=== PATIENT | male | born 1995 | race Caucasian/White ===

== ENCOUNTER 2024-09-17 16:51 | Emergency (ER) | payer MEDICAID, SELFPAY ==
[2024-09-17 17:06] VITALS: BP 140/78; BMI 83.2
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
[2024-09-17 17:34] LABS: % Basophils 0.6 % (0-2); % Eosinophils 4.8 % (0-6); % Immature Granulocytes 0.5 % (0-0.5); % Monocytes 10.7 % (1.7-9.3); % Neutrophils 62.4 % (42.2-75.2); Absolute Basophils 0.1 10^3/uL (0-0.2); Absolute Eosinophils 0.4 10^3/uL (0-0.7); Absolute Lymphocytes 1.7 10^3/uL (1.2-3.4); Absolute Monocytes 0.9 10^3/uL (0.1-0.6); Absolute Neutrophils 5.1 10^3/uL (1.4-6.5); Hematocrit 37.1 % (39.0-52.0); Hemoglobin 12.1 g/dL (13.0-18.0); Mean Corp Hgb Conc. 32.6 g/dL (33.0-37.0); Mean Corpuscular Hgb 28.6 pg (27.0-31.0); Mean Corpuscular Volume 87.7 fL (80.0-94.0); Mean Platelet Volume 9.7 fL (7.4-10.4); Nucleated Red Blood Cells % 0 % (-); Platelet Count 278 10^3/uL (130-400); Red Blood Cell Count 4.23 10^6/uL (4.70-6.10); Red Cell Dist. Width 13.7 % (11.5-14.5); White Blood Cell Count 8.2 10^3/uL (4.8-10.8)
[2024-09-17 17:54] LABS: ALT (SGPT) 68 U/L (0-50); AST (SGOT) 29 U/L (17-59); Acetaminophen < 10 ug/ml (10-30); Albumin 3.8 g/dl (3.5-5.0); Alkaline Phosphatase 52 U/L (38-126); Blood Urea Nitrogen 16 mg/dl (9-20); Calcium 8.9 mg/dl (8.4-10.2); Carbon Dioxide 26 mmol/L (22-30); Chloride 105 mmol/L (98-107); Estimated Creatinine Clearance > 125 ml/min; Glucose 255 mg/dl (70-99); Potassium 4.4 mmol/L (3.5-5.1); Salicylate < 1.0 mg/dl (2.0-20.0); Sodium 138 mmol/L (135-145); Total Bilirubin 0.4 mg/dl (0.2-1.3); Total Protein 6.5 g/dl (6.3-8.2); eGFR > 60.00
[2024-09-17 17:55] LABS: Alcohol None Detected
[2024-09-17 22:57] VITALS: BMI 82.4
[2024-09-17 23:03] VITALS: BP 129/64
--- NOTE | 2024-09-18 08:48 | CM ---
Addendum entered by Tiffany Malone RN 09/18/24 09:31:
SHOSHANA left message for patient's father to discuss discharge plan.
Addendum entered by Tiffany Malone RN 09/18/24 08:54:
SHOSHANA left message for patient's case repairer Trent (patient's secondary contact) to discuss discharge planning options.
Original Note:
CM reviewed medical records. Cm met with patient in room. Patient confirmed that he is currently homeless. Patient endorses that he has a mental health case repairer through [facility]. CM left message. Patient stated that his father is
unable to assist patient .
Patient stated that he was at [facility] for 7 days and the discharge plan was to the street. SHOSHANA left message for case management at [facility] to get collateral information .
--- NOTE | 2024-09-18 10:38 | CM ---
Addendum entered by Tiffany Malone RN 09/19/24 09:48:
SHOSHANA spoke with Amina Vinson who stated that she has been involved with patient for the last two years. Patient has been followed by the co-responder program and [facility]. Amina stated that patient has lost housing about two years ago. Amina
met with patient's parents in their home and family stated they consider him '' and do not want to participate with his care.
Amina stated that patient's case has been escalated to the commissioners due to his repeated contact with police and hospitals. Amina stated that she is also going to look into guardianship for patient. CM will remain available to assist as needed.
Addendum entered by Tiffany Malone RN 09/19/24 09:02:
CM left message for Amina Vinson [phone]. Amina is a mental health co-responder from [facility].
Addendum entered by Tiffany Malone RN 09/18/24 12:17:
SHOSHANA spoke with COTAVIO Alston from [facility]. Alecia endorsed that patient was inpatient at [facility]. Patient's discharge plan was to SNF at [facility]. Of note, patient has been to [facility] two times and both times signed out
AMA. [facility] was willing to accept patient for a third admission. Patient at the last minute decided to not go to SNF and requested return to the street.
Addendum entered by Tiffany Malone RN 09/18/24 11:23:
CM assisted patient with Lyft ride. Patient's wheelchair would not fit in the trunk of the Lyft riders car. Plan to have security drive wheelchair to patient's location.
Original Note:
Patient is agreeable to a Lyft ride to [place] to wait for the [facility]. CM will update patient's [facility] Clinical Specialty Rep.
CM will refer patient to [facility] via email.
--- NOTE | 2024-09-18 10:48 | ED.CRISIS ---
ED Crisis Note
ED Crisis Note
Subjective:
Patient offers no complaints
Objective:
Sitting in bed comfortably. No acute distress
Assessment/Plan:
Crisis found transportation to alf
== END 2024-09-18 10:54 | disposition other institution (70) ==
LOC: EMR 16:51
PROVIDERS: EMERGENCY PHYSICIAN Emergency Medicine
DX: R53.1 Weakness (principal); E11.9 Type 2 diabetes mellitus without complications; I10 Essential (primary) hypertension; J45.909 Unspecified asthma, uncomplicated; Z59.01 Sheltered homelessness; Z79.4 Long term (current) use of insulin; Z99.3 Dependence on wheelchair
CPT/HCPCS: 99283; 80053; 80143; 80179; 82077; 85025; 93005

== ENCOUNTER 2024-10-30 18:57 | Emergency (ER) | payer MEDICAID, SELFPAY ==
[2024-10-30 19:05] VITALS: BP 151/85
--- NOTE | 2024-10-30 19:51 | ED.GENMED ---
History of Present Illness
General
Chief Complaint: Dizziness
Source: patient and ambulance crew
Exam Limitations: none
Time Seen by Provider: 10/30/24 19:49
Nursing documentation reviewed up to this point in time: agreed with
History of Present Illness
History of Present Illness:
29-year-old male who is homeless, was sitting outside of [place] when he felt dizzy as though he was going to pass out. Initially denied chest pain, but then said he had chest pain to myself. He does deny chest pain at this time. He denies suicidal
ideation.
Past History
Past History
ED Past Medical History: HTN and IDDM
Social History
Tobacco: Non-smoker
Alcohol: None
Drug: None
Review of Systems
Review of Systems
Allergies reviewed?: Yes
All Other Systems: Not applicable
Constitutional: Reports no symptoms
EENT: Reports no symptoms
Respiratory: Reports no symptoms; Denies trouble breathing
Cardiac: Reports chest pain
ABD/GI: Reports no symptoms
: Reports no symptoms
Musculoskeletal: Reports no symptoms
Skin: Reports no symptoms
Neurological: Reports no symptoms
Endocrine: Reports no symptoms
Hematologic/Lymphatic: Reports no symptoms
Psychiatric: Reports no symptoms
Phy Exam
Physical Exam
Physical Exam:
Physical Exam
General: no apparent distress, not acutely ill, poorly kept, obese
Neck: supple. no meningeal signs. normal posterior pharynx
Heart: s1/s2 regular rate and rhythm, no murmur. equal radial
pulses.
HEENT: Pupils equal round reactive to light, EOMI
Lungs: no acute respiratory distress. clear bilaterally
Abdomen: normal bowel sounds. not tender. no CVAT
Neuro: alert and oriented. no focal neurological deficits cranial nerves II through XII intact
Skin: no rash
Psychiatric: Poorly kept. interactive and cooperative
Extremities: no edema. no calf tenderness. negative homans. good distal pulses
Course
Orders/Labs/Results
Orders:
Orders
10/30/24 19:11
Electrocardiogram (*1) Urgent
Reason for Study: Vertigo / Dizzy
10/30/24 19:12
EKG- Treatment ONCE
10/30/24 19:22
1:1 Observation - Suicide/ Violent Behavior As Directed
Crisis Consult Urgent
Reason for Consult: SI
10/30/24 21:14
Complete Blood Count/With Diff Urgent
Comprehensive Metabolic Panel Urgent
Troponin I Urgent
10/30/24 21:30
Acetaminophen [Tylenol] 650 mg .ROUTE .STK-MED ONE
Ondansetron Orally Disint [Zofran Odt (Orally Disintegrating)] 4 mg .ROUTE .STK-MED ONE
10/30/24 21:34
Ondansetron Orally Disint [Zofran Odt (Orally Disintegrating)] 4 mg PO NOW STA
10/30/24 21:35
Acetaminophen [Tylenol] 650 mg PO NOW STA
Abnormal Lab Results
10/30/24
21:14
Creatinine 0.6 L mg/dL
(0.7-1.3)
Glucose 158 H mg/dl
(70-99)
Calcium 8.3 L mg/dl
(8.4-10.2)
ALT 58 H U/L
(0-50)
Total Protein 6.2 L g/dl
(6.3-8.2)
10/30/24 21:14
10/30/24 21:14
Vital Signs
Initial and Last Documented VS:
Initial Vital Signs
Temp Pulse Resp BP Pulse Ox
99.2 F 103 20 151/85 97
10/30/24 19:05 10/30/24 19:05 10/30/24 19:05 10/30/24 19:05 10/30/24 19:05
Last Documented Vital Signs
Temp Pulse Resp BP Pulse Ox
99.2 F 103 20 151/85 97
10/30/24 19:05 10/30/24 19:05 10/30/24 19:05 10/30/24 19:05 10/30/24 19:05
MDM/Problems Addressed
Differential Diagnosis Includes:
Dysrhythmia, ACS
MDM/Problems Addressed:
29-year-old male with near syncope, reported SI, though now denying. Evaluated by telepsych, who recommends inpatient treatment. Patient is not currently mandated for mandatory inpatient hospitalization will attempt to find placement, psychiatry
to see in a.m. if patient is still in hospital.
Chronic conditions affecting care: Asthma
*Pulse Oximetry
Patient hypoxic: no
*EKG
Interpreted by ED Provider?: Yes
EKG Intrepretation Date: 10/30/24
EKG Intrepretation Time: 19:26
Interpretation: abnormal
Comparison EKG: no changes
Heart Rate: 109
Rate: tachycardiac
Rhythm: sinus tachycardia
[place]: normal axis
Interval: normal interval
QRS Pattern: normal QRS
Ischemia: no ischemia
*Critical Care Note
Total Time (30-74mins, 75-104mins- exclusive of procedures): Not Applicable
Patient Management
Social determinants of health affecting care: Living situation
Discussion with other providers: Buckram Sewer (Telepsychiatry)
Escalation/DeEscalation of care consider admission/obs:
Admission considered, will evaluate for inpatient psychiatry
ED Attending Note
-
Portions of this chart may have been created with voice recognition software.� Occasional wrong word or��sound alike� substitutions may have occurred due to the inherent limitations of voice recognition software.
Discharge Plan
Departure
Patient Disposition: Psych Facility
Date of Disposition: 10/31/24
Time of Disposition: 01:47
Patient Status:: Psych
Patient with high blood pressure during this ER visit?: Yes
Consults for patient: Psychiatry
Discharge Problem:
Dizziness
Prescriptions:
No Action
No Current Medications
0
Referrals:
NONE,* [Family Provider] -
Interventions
Interventions:
*Risk Screen - Suicide Last Done: 10/30/24 19:05
*General Assessment Last Done: 10/30/24 19:05
*Neglect/Abuse Screening Last Done: 10/30/24 19:05
ED- Fall Risk Assessment Last Done: 10/30/24 21:20
*ED COVID-19 Vaccine History Last Done: 10/30/24 19:05
ED- Neurological Assessment Last Done: 10/30/24 21:20
ED Swallowing Screen Last Done: 10/30/24 21:20
Discharge Date and Time
Print Language: MONEGASQUE
[2024-10-30 21:16] VITALS: BMI 71.6
[2024-10-30 21:22] LABS: % Basophils 0.4 % (0-2); % Eosinophils 0.8 % (0-6); % Immature Granulocytes 0.4 % (0-0.5); % Lymphocytes 27.7 % (20.5-51.1); % Monocytes 7.4 % (1.7-9.3); % Neutrophils 63.3 % (42.2-75.2); Absolute Eosinophils 0.1 10^3/uL (0-0.7); Absolute Lymphocytes 2.1 10^3/uL (1.2-3.4); Absolute Monocytes 0.6 10^3/uL (0.1-0.6); Absolute Neutrophils 4.7 10^3/uL (1.4-6.5); Hematocrit 39.4 % (39.0-52.0); Hemoglobin 13.5 g/dL (13.0-18.0); Mean Corp Hgb Conc. 34.3 g/dL (33.0-37.0); Mean Corpuscular Hgb 28.5 pg (27.0-31.0); Mean Corpuscular Volume 83.3 fL (80.0-94.0); Mean Platelet Volume 9.9 fL (7.4-10.4); Nucleated Red Blood Cells % 0 % (-); Platelet Count 267 10^3/uL (130-400); Red Blood Cell Count 4.73 10^6/uL (4.70-6.10); Red Cell Dist. Width 13.6 % (11.5-14.5); White Blood Cell Count 7.5 10^3/uL (4.8-10.8)
[2024-10-30] MEDS: ZOFRAN ODT (ORALLY DISINTEGRATING) 4 MG PO (21:34)
[2024-10-30] MEDS: TYLENOL 650 MG PO (21:35)
[2024-10-30 21:39] LABS: ALT (SGPT) 58 U/L (0-50); AST (SGOT) 31 U/L (17-59); Albumin 3.7 g/dl (3.5-5.0); Alkaline Phosphatase 53 U/L (38-126); Blood Urea Nitrogen 16 mg/dl (9-20); Calcium 8.3 mg/dl (8.4-10.2); Carbon Dioxide 27 mmol/L (22-30); Chloride 107 mmol/L (98-107); Estimated Creatinine Clearance > 125 ml/min; Glucose 158 mg/dl (70-99); Potassium 3.6 mmol/L (3.5-5.1); Sodium 142 mmol/L (135-145); Total Bilirubin 0.4 mg/dl (0.2-1.3); Total Protein 6.2 g/dl (6.3-8.2); eGFR > 60.00
[2024-10-30 21:45] LABS: Troponin I < 0.012 ng/ml
[2024-10-31 03:17] VITALS: BP 126/70
[2024-10-31 08:57] LABS: Glucose - Point of Care 179 mg/dl (70-99)
[2024-10-31 08:58] VITALS: BP 143/87
--- NOTE | 2024-10-31 13:51 | ED.CRISIS ---
ED Crisis Note
ED Crisis Note
Subjective:
29-year-old male currently homeless presents for suicidality. Currently awaiting placement for inpatient treatment at the recommendation of telepsychiatry�he is voluntary for placement.
Objective:
Awake and alert, resting comfortably in bed not in distress.
Assessment/Plan:
29-year-old male here pending placement for involuntary psychiatric treatment for reported suicidal ideation. Psychiatry has been consulted and are following along. No acute events today. Continue to monitor pending placement.
--- NOTE | 2024-10-31 15:58 | CON.MD ---
Consultation - Medical
-
patient seen chart reviewed patient is a 29 year old male who comes to after 911 called for 'dizziness' the patient is homeless and wsas seen sitting outside . when brought to he made some c.o chest pain but later said he did not have chest
pain. when he was first seen by er dr butler, he said he was not suicidal but later said that he had si but no intent or plan. he also said earlier no hallucinations but told me and tool salvage worker that he heard 'gibberish ' in his head. the
patient was not a good historian there was a long latency between ? and answer and answers were often incomplete. he said he may have been dx as 'schizophrenic. ' the only medication he recalled taking was haldol. the patient thinks he was hslp
once locally but he did not know where. he takes no meds currently.
past psych hx see above details not clear patient is a poor historian
medical hx morbid obesity. patient weights 260 kg he has iddm but has not had insulin for about a week he says not clear where he fills scrips he could not tell me. his blodd sugar this am 158 fasting. bp 143/87 alt 58 ecg shows anterolateral
infarct on or before sep 17
fh not known
substance abuse denied
social patient lived in [place]. he told me the names of his parents 'irais and javier' i googled them and called many phone numbers but i could not locate them. he said they may have moved. he had no sibs. grad hs. worked at [employer] once.
had a room in a house until some months ago.
mse ox 3 alertness in question as i had to ask questions a few times to get him to answer though later when i came back to tell him i had not succeeded in locating parents he seemed more alert speech rather mumbly at times re thought process i
did wonder if some thought blocking mood is neutral affect constricted. admits he sometimes has si but no intent or plan aver intell insight judgment lacking
dx r.o schizophrenia
plan will keep patient for tonight. will research options which are limited right now. he has been turned down at all local psych units. dr parada will take a look at him this evening and order whatever is needed vis a vis dm to keep him stable.
have reached out to store operations manager at [facility] to see if he has any ideas where we might refer him.
[2024-10-31 21:14] VITALS: BP 130/67
[2024-11-01 08:45] VITALS: BP 151/90
[2024-11-01 16:44] VITALS: BP 109/73
--- NOTE | 2024-11-01 17:11 | W.PN.UPDATE ---
Update Note
Progress Note Update
patient seen chart reviewed. spoke with dr grande. the patient remains much the same. i had ordered bloodwork earlier today but it appears that it was not done yet. i did verify it was ordered. carrol is not very communicative. he answers
questions in one or two word answers. i attempted again to find his parents but while this time a phone number i dialed was answered they told me they were not related to him and said they had had a number of calls on looking for a 'irais harris'
asked dr grande to take a look at patient o ascertain he does not need medical care. asked er staff when time allows to get a shower for patient. he is calm and generally cooperative. today he told he he was not hearing voices and did not have
si. the paucity of his thought and expression as well as the trajectory of his life do suggest schizophrenia dx. also attempted to call [facility] as it was suggested to me they might have some knowledge of him but no one
answered. (it was 4 pm)
[2024-11-01 18:20] LABS: Blood Urea Nitrogen 13 mg/dl (9-20); Calcium 9.2 mg/dl (8.4-10.2); Carbon Dioxide 31 mmol/L (22-30); Chloride 101 mmol/L (98-107); Estimated Creatinine Clearance > 125 ml/min; Glucose 133 mg/dl (70-99); Potassium 4.3 mmol/L (3.5-5.1); Sodium 140 mmol/L (135-145); eGFR > 60.00
[2024-11-01 18:50] LABS: TSH 1.83 uIU/ml (0.47-4.68)
[2024-11-01 19:26] LABS: Folate 10.4 ng/ml (2.76-20); Vitamin B12 329 pg/ml (239-931)
[2024-11-02 00:09] VITALS: BMI 71.6
[2024-11-02 06:40] VITALS: BP 109/71
[2024-11-02 12:23] VITALS: BP 118/65
--- NOTE | 2024-11-02 17:51 | W.PN.UPDATE ---
Update Note
Progress Note Update
29 y/o single homeless man seen for follow-up. He apparently has a history of schizophrenia with hallucinations and denies any history of substance abuse. He does not have contact with his parents for the past 3 years as they did not understand
his mental illness. May have had suicidal ideation, but not currently. Denies currently hallucinating. Is alert and oriented. Speech is well-articulated and fairly lucid. Despite showering this afternoon,has strong body odor likely because there
is no other clothing for him due to his size.
Graduated from [employer]. 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 No higher education. Poor judgment about what he wants: a ride to the [employer] to apply for a job and live in their parking lot. He apparently
had funding for staying in a hotel for 7 months from [facility]. They are supposedly applying for benefits for him. He has no source of income.
He has been rejected from psychiatric hospitals because of his massive obesity. Ambulates with some difficulty; has used a wheelchair in the past.
Will continue off medication and Crisis and CM to work on placement.
[2024-11-03 10:24] VITALS: BP 96/65
--- NOTE | 2024-11-03 11:13 | EDRN ---
Charge nurse states pt is no longer crisis pt and needs a place to go as he is homeless. Case management offered pt half-way but pt per chargeback analyst declined saying he wishes to go back and stay in [facility] parking lot.
--- NOTE | 2024-11-03 11:14 | EDRN ---
Pt needs clothes and a ride per charge nurse.
--- NOTE | 2024-11-03 13:36 | EDRN ---
Box Coverer Hand just came to speak w/ me and pt has [employer]FT coming to pick him up in 8 minutes.
--- NOTE | 2024-11-03 14:34 | CM ---
Addendum entered by Alayna Santana 11/03/24 16:31:
Of note, CM attempted to obtain clean clothing for pt
Most thrift shops closed
Call with [facility]- do no carry clothes in his size
Original Note:
ED CM consulted for dc planning assistance
Discussion with Dr Allen- not appropriate for inpatient tx at this time
Crisis has signed off
Multiple bedside meetings with pt
Pt homeless and without any supports
[facility] Living bed at [facility] available tomorrow, [facility] closed today
Pt declined, insisting on dc to [facility]
Multiples resources provided to pt including shelters, homeless resources
Lyft arranged
== END 2024-11-03 14:00 ==
LOC: EMR 18:57
PROVIDERS: CONSULT PHYSICIAN Psychiatry & Neurology Psychiatry; EMERGENCY PHYSICIAN Emergency Medicine
DX: F33.3 Major depressive disorder, recurrent, severe with psychotic symptoms (principal); R45.851 Suicidal ideations; E11.9 Type 2 diabetes mellitus without complications; I10 Essential (primary) hypertension; J45.909 Unspecified asthma, uncomplicated; Z59.02 Unsheltered homelessness; Z79.4 Long term (current) use of insulin; Z91.148 Patient's other noncompliance with medication regimen for other reason
CPT/HCPCS: 99285; 80048; 80053; 82607; 82746; 82962; 84443; 84484; 85025; 93005

== ENCOUNTER 2024-12-02 15:23 | Emergency (ER) | payer MEDICAID, SELFPAY ==
[2024-12-02 15:27] VITALS: BP 155/81
[2024-12-02 18:35] VITALS: BMI 85.9
--- NOTE | 2024-12-02 19:11 | ED.GENMED ---
History of Present Illness
<Ameya Henson PA-C - Last Filed: 12/02/24 22:53>
General
Chief Complaint: Skin Problem
Source: patient, records and career specialist
Time Seen by Provider: 12/02/24 18:36
History of Present Illness
History of Present Illness:
29-year-old male with past medical history of [id number] diabetes and mental health disorder, homeless presenting to the emergency department with his court appointed guardian who started working with the patient today presenting to the
emergency department for evaluation and ultimately hopeful admission for continued ongoing medical care as the caregiver states she has a prison facility willing to accept the patient however they are unable to get to the prison
facility without admission/medical care. The patient notes he has had ongoing worsening rash to his lower abdomen, genitalia and rectal area which has been causing increased pain. It is unclear as to how long these symptoms have been ongoing for.
Patient denies any fevers, chills, rigors, nausea, vomiting, bowel changes or urinary symptoms. Patient does not have any outpatient follow-up or medical care at this time. Patient recently here for mental health reasoning and was ultimately
discharged.
Past History
<Ameya Henson PA-C - Last Filed: 12/02/24 22:53>
Past History
ED Past Medical History: HTN, NIDDM and Psychiatric
ED Past Surgical History: None
Social History
Tobacco: Non-smoker
Alcohol: None
Drug: None
Personal: Single
Living: homeless
Review of Systems
<Ameya Henson PA-C - Last Filed: 12/02/24 22:53>
Review of Systems
All Other Systems: ROS reviewed and negative except as documented in HPI and ROS
Phy Exam
<Ameya Henson PA-C - Last Filed: 12/02/24 22:53>
Physical Exam
Physical Exam:
GENERAL: Alert , in no apparent distress, morbidly obese, unkempt and malodorous
HEAD: NCAT
EYE: clear conjunctiva
NECK: Supple
ENT: o/p clr, mmm.
CARDIAC: Tachycardic rate and rhythm
LUNGS: Clear breath sounds bilaterally, no acute respiratory distress, no wheezes/rales/rhonchi
ABDOMEN: Large abdominal pannus, there is significant malodorous erythema that is weeping, malodorous and painful to the touch within the lower part of the abdomen, bilateral groin extending down towards the genitalia and rectum. Soft, without
focal tenderness, no r/g, no cvat
NEUROLOGICAL: Alert and oriented
SKIN: Warm and dry, skin intact.
MUSCULOSKELETAL: Bilateral lower extremity edema, well perfused.
PSYCH: Normal and appropriate interaction.
Scores
<Ameya Henson PA-C - Last Filed: 12/02/24 22:53>
Heart Failure Risk
Heart Failure Risk Score: Not Applicable
Heart Score for Chest Pain Patients
STEMI patient?: Not applicable
Withdrawal Assessment of Alcohol
Withdrawal Assessment Completed?: Not applicable
Course
<Ameya Henson PA-C - Last Filed: 12/02/24 22:53>
Orders/Labs/Results
Orders:
Orders
12/02/24 20:00
Vancomycin [Vancocin] 2,000 mg 0.9% Sodium Chloride 500 ml [Nss] 500 ml IV NOW
12/02/24 20:01
CeFAZolin 2 GRAM [Ancef] 2 grams in 10 ml IV NOW
12/02/24 20:16
Complete Blood Count/With Diff Urgent
Comprehensive Metabolic Panel Urgent
Lactic Acid Q4H
Comment: CANCEL 2nd LACTIC ACID IF 1st LACTIC ACID IS LESS THAN 2
Blood Culture Q30M
TIMMY Source: Blood/Venous
Specimen Description:
Blood Culture Q30M
TIMMY Source: Blood/Venous
Specimen Description:
Abnormal Lab Results
12/02/24
20:16
RBC 3.67 L 10^6/uL
(4.70-6.10)
Hgb 10.6 L g/dL
(13.0-18.0)
Hct 31.0 L %
(39.0-52.0)
Absolute Neuts (auto) 6.6 H 10^3/uL
(1.4-6.5)
Absolute Monos (auto) 1.2 H 10^3/uL
(0.1-0.6)
Lymphocytes % 18.1 L %
(20.5-51.1)
Monocytes % 11.9 H %
(1.7-9.3)
Sodium 134 L mmol/L
(135-145)
Creatinine 0.6 L mg/dL
(0.7-1.3)
Glucose 132 H mg/dl
(70-99)
Total Protein 6.0 L g/dl
(6.3-8.2)
Albumin 3.2 L g/dl
(3.5-5.0)
12/02/24 20:16
12/02/24 20:16
Vital Signs
Initial and Last Documented VS:
Initial Vital Signs
Temp Pulse Resp BP Pulse Ox
98.5 F 124 20 155/81 96
12/02/24 15:27 12/02/24 15:27 12/02/24 15:27 12/02/24 15:27 12/02/24 15:27
Last Documented Vital Signs
Temp Pulse Resp BP Pulse Ox
99.0 F 106 24 119/54 99
12/02/24 20:51 12/02/24 20:51 12/02/24 20:51 12/02/24 20:51 12/02/24 20:51
<Leonel Odell MD - Last Filed: 12/02/24 20:05>
Orders/Labs/Results
Orders:
Orders
12/02/24 20:00
Vancomycin [Vancocin] 2,000 mg 0.9% Sodium Chloride 500 ml [Nss] 500 ml IV NOW
12/02/24 20:01
CeFAZolin 2 GRAM [Ancef] 2 grams in 10 ml IV NOW
12/02/24 20:16
Complete Blood Count/With Diff Urgent
Comprehensive Metabolic Panel Urgent
Lactic Acid Q4H
Comment: CANCEL 2nd LACTIC ACID IF 1st LACTIC ACID IS LESS THAN 2
Blood Culture Q30M
TIMMY Source: Blood/Venous
Specimen Description:
Blood Culture Q30M
TIMMY Source: Blood/Venous
Specimen Description:
Abnormal Lab Results
12/02/24
20:16
RBC 3.67 L 10^6/uL
(4.70-6.10)
Hgb 10.6 L g/dL
(13.0-18.0)
Hct 31.0 L %
(39.0-52.0)
Absolute Neuts (auto) 6.6 H 10^3/uL
(1.4-6.5)
Absolute Monos (auto) 1.2 H 10^3/uL
(0.1-0.6)
Lymphocytes % 18.1 L %
(20.5-51.1)
Monocytes % 11.9 H %
(1.7-9.3)
Sodium 134 L mmol/L
(135-145)
Creatinine 0.6 L mg/dL
(0.7-1.3)
Glucose 132 H mg/dl
(70-99)
Total Protein 6.0 L g/dl
(6.3-8.2)
Albumin 3.2 L g/dl
(3.5-5.0)
12/02/24 20:16
12/02/24 20:16
Vital Signs
Initial and Last Documented VS:
Initial Vital Signs
Temp Pulse Resp BP Pulse Ox
98.5 F 124 20 155/81 96
12/02/24 15:27 12/02/24 15:27 12/02/24 15:27 12/02/24 15:27 12/02/24 15:27
Last Documented Vital Signs
Temp Pulse Resp BP Pulse Ox
99.0 F 106 24 119/54 99
12/02/24 20:51 12/02/24 20:51 12/02/24 20:51 12/02/24 20:51 12/02/24 20:51
<Ameya Henson PA-C - Last Filed: 12/02/24 22:53>
MDM/Problems Addressed
Differential Diagnosis Includes:
Morbid obesity, candidiasis/tinea, cellulitis, Mari's gangrene, decubitus ulcers
MDM/Problems Addressed:
29-year-old male, morbidly obese, presenting to the ER with caregiver for further medical treatment to ultimately be admitted with disposition to prison facility for ongoing medical care. Patient tachycardic on arrival but without any
fevers. Significantly overweight, unkempt and malodorous. There does appear to be combination of cellulitis and fungal infection to the abdominal pannus, genitalia and rectal area but no crepitus appreciated. Exam was quite difficult due to
patient's body habitus. Will obtain labs and initiate treatment with antibiotics. Due to patient's weight will contact outside facilities to are more equipped to deal with significant bariatric patients. Disposition pending.
Chronic conditions affecting care: DM
<Ameya Henson PA-C - Last Filed: 12/02/24 22:53>
*Pulse Oximetry
Patient hypoxic: no
*Critical Care Note
Total Time (30-74mins, 75-104mins- exclusive of procedures): Not Applicable
Data Reviewed
Review of Other/Old Records Reveals: Labs and Records
<Ameya Henson PA-C - Last Filed: 12/02/24 22:53>
Patient Management
Social determinants of health affecting care: Financial situation, Poor outpatient follow-up and Poor social support
Discussion with other providers: [facility]
Escalation/DeEscalation of care consider admission/obs:
Case discussed with internal medicine attending Dr. Sanz who accepts patient in transfer. No further recommendations at this time. [place] to help arrange transport due to patient obesity.
ED Attending Note
<Ameya Henson PA-C - Last Filed: 12/02/24 22:53>
-
Portions of this chart may have been created with voice recognition software.� Occasional wrong word or��sound alike� substitutions may have occurred due to the inherent limitations of voice recognition software.
<Leonel Odell MD - Last Filed: 12/02/24 20:05>
ED Attending Note
Patient seen and examined by attending physician: Yes
I performed the substantive portion of visit, reviewed & personally made and approve the management plan that is documented in note by myself or KENZIE.: Yes
ED Attending Note:
29-year-old male here for swelling in the groin wheelchair confined homeless. Here with his caregiver/guardian. On exam patient morbidly obese. Nontoxic fully awake and alert. Mildly tachycardic. Abdomen obese warm and dry. Fungal like rash in
the groin however erythema and induration extending to the pannus below the groin into the perineal area. Impression is possible cellulitis secondary to a fungal infection. Warrants admission IV antibiotics. Will try to refer to a center that can
handle his weight.
Discharge Plan
Departure
Patient Disposition: Acute Care Hospital
Date of Disposition: 12/02/24
Time of Disposition: 20:38
Patient with high blood pressure during this ER visit?: No
Discharge Problem:
Morbid obesity, Cellulitis of abdominal wall, Cellulitis of male genitalia, Candidiasis of urogenital sites
Prescriptions:
No Action
No Current Medications
0
Referrals:
NONE,* [Family Provider] -
Hospital Transfer
Other hospital: [facility]
I certify that the patient requires transfer: Yes
Discussed case with accepting physician: Dr. Sanz
Reason for transfer: medical necessity and availability of service
Interventions
Interventions:
*Risk Screen - Suicide Last Done: 12/02/24 20:08
*General Assessment Last Done: 12/02/24 20:08
*Neglect/Abuse Screening Last Done: 12/02/24 20:08
*ED COVID-19 Vaccine History Last Done: 12/02/24 20:08
Discharge Date and Time
Print Language: LATVIAN
[2024-12-02 20:30] LABS: % Basophils 0.5 % (0-2); % Eosinophils 1.2 % (0-6); % Immature Granulocytes 0.4 % (0-0.5); % Lymphocytes 18.1 % (20.5-51.1); % Monocytes 11.9 % (1.7-9.3); % Neutrophils 67.9 % (42.2-75.2); Absolute Basophils 0.1 10^3/uL (0-0.2); Absolute Eosinophils 0.1 10^3/uL (0-0.7); Absolute Lymphocytes 1.8 10^3/uL (1.2-3.4); Absolute Monocytes 1.2 10^3/uL (0.1-0.6); Absolute Neutrophils 6.6 10^3/uL (1.4-6.5); Hemoglobin 10.6 g/dL (13.0-18.0); Mean Corp Hgb Conc. 34.2 g/dL (33.0-37.0); Mean Corpuscular Hgb 28.9 pg (27.0-31.0); Mean Corpuscular Volume 84.5 fL (80.0-94.0); Mean Platelet Volume 9.2 fL (7.4-10.4); Nucleated Red Blood Cells % 0 % (-); Platelet Count 278 10^3/uL (130-400); Red Blood Cell Count 3.67 10^6/uL (4.70-6.10); Red Cell Dist. Width 13.6 % (11.5-14.5); White Blood Cell Count 9.7 10^3/uL (4.8-10.8)
[2024-12-02 20:43] LABS: ALT (SGPT) 35 U/L (0-50); AST (SGOT) 24 U/L (17-59); Albumin 3.2 g/dl (3.5-5.0); Alkaline Phosphatase 53 U/L (38-126); Blood Urea Nitrogen 13 mg/dl (9-20); Calcium 8.8 mg/dl (8.4-10.2); Carbon Dioxide 28 mmol/L (22-30); Chloride 103 mmol/L (98-107); Estimated Creatinine Clearance > 125 ml/min; Glucose 132 mg/dl (70-99); Lactic Acid 1.1 mmol/L (0.7-2.0); Potassium 4.4 mmol/L (3.5-5.1); Sodium 134 mmol/L (135-145); Total Bilirubin 0.8 mg/dl (0.2-1.3); eGFR > 60.00
[2024-12-02] MEDS: ANCEF 10 IV (20:46)
[2024-12-02 20:51] VITALS: BP 119/54
[2024-12-02] MEDS: VANCOCIN 540 MG IV (21:14)
== END 2024-12-02 23:35 | disposition short-term general hospital (02) ==
LOC: EMR 15:23
PROVIDERS: Physician Assistant Medical; EMERGENCY PHYSICIAN Emergency Medicine
DX: L03.311 Cellulitis of abdominal wall (principal); N49.8 Inflammatory disorders of other specified male genital organs; B37.49 Other urogenital candidiasis; E66.01 Morbid (severe) obesity due to excess calories; Z59.00 Homelessness unspecified; E11.9 Type 2 diabetes mellitus without complications; I10 Essential (primary) hypertension; Z99.3 Dependence on wheelchair
CPT/HCPCS: 99285; 96365; 96366; 96375; 80053; 83605; 85025; 87040

== ENCOUNTER 2024-12-08 14:26 | Observation (INO) | payer OTHER, SELFPAY ==
[2024-12-08 14:35] VITALS: BP 143/79
[2024-12-08 14:37] VITALS: BMI 76.3
[2024-12-08 15:15] VITALS: BP 136/83
--- NOTE | 2024-12-08 15:35 | HPS.HSE ---
Family Physician
-
Family Physician: INTERVIEWE UNKNOWN - PT NOT
Chief Complaint
-
fungal rash
History of Present Illness
Patient is a 29-year-old male with past medical history significant for morbid obesity, diabetes and Hx psychosis who presented to [facility] ED as a transfer from [facility]. Patient ordinally presented to [facility] ED on
12/02/[address] appointed guardian for evaluation of rash of lower abdomen, genitalia and rectal area that has been causing increased discomfort, he was transferred to [facility] for treatment of rash/cellulitis as they are
better equipped to deal with significant bariatric patients. Treatment at [facility] included IV Vancomycin and Miconazole powder, mushtaqo completed patient to continue with miconazole for 10 days per transfer. Patient today states he feels
much better and has one area in the perianal region that bothers him when sitting in wheelchair. Denies any other concerns at this time.
Medical History
Past Medical History
Past Medical History: Reports Other
Additional Past Medical History:
morbid obesity
diabetes
Hx psychosis
Past Surgical History: Reports None
Social History
Tobacco: Non-smoker
Alcohol: None
Drug: None
Personal: Single
Living: Homeless
Employment: Not Employed
Family History
Family History: Unable to Obtain (patient unaware )
Allergies / Home Medications
Allergies reflects when Allergies were last updated in [employer].
Home Medications with original date entered in [employer]
Allergy/Medication List:
Allergies
Allergy/AdvReac Type Severity Reaction Status Date / Time
No Known Allergies Allergy Verified 12/02/24 15:28
Home Medications
aluminum-magnesium hydroxide 225 mg-200 mg/5 mL oral suspension 5 ml PO TID PRN GERD 12/08/24
Review of Systems
-
History Source: Patient
Constitutional: Reports No Symptoms
EENT: Reports No Symptoms
Respiratory: Reports No Symptoms
Cardiac: Reports No Symptoms
Abdomen/GI: Reports No Symptoms
: Reports No Symptoms
Musculoskeletal: Reports No Symptoms
Skin: Reports Other (excoriation to perianal region, hurts when sitting in wheelchair )
Neurological: Reports No Symptoms
Endocrine: Reports No Symptoms
Hematologic/Lymphatic: Reports No Symptoms
Psych: Reports No Symptoms
Physical Exam
Vital Signs
Vital Signs
Temp Pulse Resp BP Pulse Ox
98.5 F 104 18 143/79 97
12/08/24 14:35 12/08/24 14:35 12/08/24 14:35 12/08/24 14:35 12/08/24 15:27
Physical Exam
General: Well Developed, Well Nourished, No Apparent Distress, Comfortable, Conversant and Morbidly Obese
HEENT: NormoCephalic, Moist mucous membranes, Atraumatic, PERRLA, [place] Conjunctivae, Nose Appears Normal and Ears Appear Normal
Respiratory: Clear and Non Labored Respirations
Cardiac: S1/S2 and Regular Rhythm; No Murmur, Rub or Gallop
Breast: Deferred by me
GI: Soft, Non Tender, Non Distended and Normal Bowel Sounds; No Organomegaly
Rectal: Deferred by Provider
Genito-urinary: Deferred by me
Musculoskeletal: No Clubbing, No Cyanosis and No Edema
Skin: Warm and Rash (abdominal fold, groin area, perianal area, all with erythema and healing fungal rash)
Neuro: Awake, Alert and Nonfocal/grossly intact
Psych: Calm
Impression/Plan
-
IMPRESSION/PLAN:
#fungal rash with bacterial infection
treated at [facility] with IV vanco and miconazole powder
- Admit to med/surg
- consult case management
- consult PT/OT
- consult wound care
#morbid obesity
BMI 254.919 kg
- encourage balanced diet and exercise for a goal of weight loss
- affects all aspects of care
#diabetes melitis
A1C 6.9 ([facility])
- AccuCheck AC & HS
- SSI
Code status: full code
DVT prophylaxis: Lovenox Sq
--- NOTE | 2024-12-08 15:43 | PTCARENOTE ---
Patient admitted into 2124 as direct admission from [facility]. Patient AAOX3, VSS, stand and pivot with x1-2 assist from EMS stretcher to bed; patient states he uses a wheelchair at baseline. Patient is homeless, states only contact is a
recently appointed court guardian. Patient bathed with soap and water on admission, skin check with second RN; redness to scrotum/groin/abd folds which patient states has improved over last week, redness/MASD to B/L buttock/rectum, abrasion to R
outer thigh which patient states is from using wrong sized wheelchair. Wound consult placed. When asked if patient has felt down depressed or hopeless over last 2 weeks or if he has had thoughts of hurting himself, patient stated 'yeah I guess a
little bit.' Dr. Macedo sent TT of patient's statement, Starla Deluca at bedside and made aware of patient's statement as well, no new orders at this time. Patient denies drug or alcohol use. Patient states mixed continence of bowel and
bladder. Patient on bariatric air bed. Patient oriented to room and call urbina, states no concerns at this time.
[2024-12-08 17:08] LABS: Glucose - Point of Care 128 mg/dl (70-99)
[2024-12-08] MEDS: NOVOLOG FLEXPEN-LOW RESISTANCE SC (17:15)
--- NOTE | 2024-12-08 17:23 | W.PN.UPDATE ---
Update Note
Progress Note Update
This is an addendum to the H&P written by Iwona Deluca on 12/08/2024. Patient seen and examined independently with GROUND WATER TECHNICIAN
29-year-old male past medical history of diabetes, obesity, psychosis, homeless presenting as transfer from [facility].
Patient came to [facility] on 12/02 for worsening rash of his lower abdomen, genitalia and rectal area causing pain of unclear duration. He was transferred to [facility] due to obesity and his weight status.
He was treated with IV vancomycin and completed treatment with significant improvement in the rash. He continues to have erythema and abdominal folds, groin and anal region currently being treated with topical miconazole.
Patient with fungal rash that appears significantly improved.
Patient has a court-appointed guardian. Case management consult to assist with senior living facility placement.
Patient depressed without any suicidal ideation.
[2024-12-08] MEDS: LOVENOX 60 MG SC (21:15)
[2024-12-08] MEDS: DESENEX/MITRAZOL/ZEASORB 1 APPLIC TOPICAL (21:16)
[2024-12-08 21:58] LABS: Glucose - Point of Care 156 mg/dl (70-99)
[2024-12-08 23:24] VITALS: BP 136/80
[2024-12-09 07:20] VITALS: BP 131/70
[2024-12-09 07:34] LABS: Glucose - Point of Care 134 mg/dl (70-99)
[2024-12-09] MEDS: NOVOLOG FLEXPEN-LOW RESISTANCE SC ×3 (07:41→17:07)
[2024-12-09 08:35] LABS: Hematocrit 39.7 % (39.0-52.0); Hemoglobin 13.2 g/dL (13.0-18.0); Mean Corp Hgb Conc. 33.2 g/dL (33.0-37.0); Mean Corpuscular Hgb 28.5 pg (27.0-31.0); Mean Corpuscular Volume 85.7 fL (80.0-94.0); Mean Platelet Volume 9.7 fL (7.4-10.4); Platelet Count 307 10^3/uL (130-400); Red Blood Cell Count 4.63 10^6/uL (4.70-6.10); Red Cell Dist. Width 13.7 % (11.5-14.5); White Blood Cell Count 8.9 10^3/uL (4.8-10.8)
[2024-12-09 08:54] LABS: ALT (SGPT) 99 U/L (0-50); AST (SGOT) 60 U/L (17-59); Albumin 3.7 g/dl (3.5-5.0); Alkaline Phosphatase 58 U/L (38-126); Blood Urea Nitrogen 21 mg/dl (9-20); Calcium 9.3 mg/dl (8.4-10.2); Carbon Dioxide 27 mmol/L (22-30); Chloride 102 mmol/L (98-107); Estimated Creatinine Clearance > 125 ml/min; Glucose 134 mg/dl (70-99); Magnesium 2.2 mg/dl (1.6-2.3); Potassium 4.3 mmol/L (3.5-5.1); Sodium 138 mmol/L (135-145); eGFR > 60.00
[2024-12-09] MEDS: LOVENOX 60 MG SC ×2 (09:03→20:58)
[2024-12-09] MEDS: DESENEX/MITRAZOL/ZEASORB 1 APPLIC TOPICAL ×2 (09:04→20:58)
[2024-12-09 09:48] LABS: Glycohemoglobin (HgbA1c) 6.5 % (4.0-5.6)
[2024-12-09 11:49] LABS: Glucose - Point of Care 120 mg/dl (70-99)
--- NOTE | 2024-12-09 13:52 | WOUNDNOTE ---
WO RN note: Patient admitted with resolving groin fungal rash and cellulitis
See H&P for complete history.
PMH: Obesity, diabetes, homelessness.
.Wound Location and type/assessment: Patient transferred from [place]. Groin rash/cellulitis appears to be resolving. Mild erythema noted with some fungal appearing skin in skin folds. Desenex powder ordered upon admission for areas of fungal
appearing skin in groin skin folds. Patient has abrasion of right lateral thigh from wheelchair. Patient demonstrates ability to turn in bed. Heels intact.
Pressure redistribution devices in place: Bariatric air bed
Plan: Continue with Desenex powder for fungal appearing skin. Honey gel and silicone border foam daily to right lateral leg. Will confirm orders with hospitalist and update nurse. Updated care plan and will follow as needed.
Note to case management of equipment requested for discharge: Bariatric air bed
Recommend follow up at wound care center upon discharge.
--- NOTE | 2024-12-09 14:46 | WOUNDNOTE ---
RIGHT LATERAL THIGH
--- NOTE | 2024-12-09 14:47 | WOUNDNOTE ---
LEFT GROIN FOLDS
[2024-12-09 15:15] VITALS: BP 124/73
--- NOTE | 2024-12-09 16:14 | W.PN.HOSP.TC ---
Today's Communication/Plan
-
Supportive care.
Placement
Assessment / Plan
Assessment / Plan
IMPRESSION/PLAN:
#fungal rash with bacterial infection
treated at [facility] with IV vanco and miconazole powder
- Admit to med/surg
- consult case management
- consult PT/OT
- consult wound care
#morbid obesity
BMI 254.919 kg
- encourage balanced diet and exercise for a goal of weight loss
- affects all aspects of care
#diabetes melitis
A1C 6.9 ([facility])
- AccuCheck AC & HS
- SSI
Prior history of psychosis.
Currently stable with no evidence of decompensation.
No reported suicidal ideation upon admission.
Will ask psychiatry to evaluate and assist with placement.
Code status: full code
DVT prophylaxis: Lovenox Sq
Anticipated Discharge: 24 - 48 hours
Subjective/Interval History
-
Date of Service: December 09, 2024
Objective Data
-
Labs:
Laboratory Results
12/09/24
07:17
WBC 8.9
Hgb 13.2 D
Hct 39.7
Plt Count 307
Sodium 138
Potassium 4.3
Chloride 102
Carbon Dioxide 27
BUN 21 H
Creatinine 0.7
Glucose 134 H
Calcium 9.3
Total Bilirubin 1.0
AST 60 H
ALT 99 H
Alkaline Phosphatase 58
Vital Signs:
Vital Signs
Temp Pulse Resp BP Pulse Ox
98.6 F 83 18 124/73 97
12/09/24 15:15 12/09/24 15:15 12/09/24 15:15 12/09/24 15:15 12/09/24 15:15
I&O
12/08/24 12/09/24 12/10/24
06:59 06:59 06:59
Intake Total 660 / 660
Output Total 700 / 700
Balance -40 / -40
Physical Exam
-
General: Well Developed and No Apparent Distress
HEENT: Normocephalic, Atraumatic and Moist Mucous Membranes
Respiratory: Clear to Auscultation
Cardiac: Regular Rhythm and S1/S2; Negative Murmur, Rub or Gallop
GI: Soft, Nontender, Nondistended and Normal Bowel Sounds; Negative Organomegaly
Rectal: Deferred by Provider
Musculoskeletal: No Clubbing, No Cyanosis and No Edema
Skin: Negative Rash
Neuro: Nonfocal/Grossly Intact
--- NOTE | 2024-12-09 16:34 | PTCARENOTE ---
Patient AAOX3, flat affect, calm and cooperative with care. No suicidal ideation noted this shift, this RN communicated assessment findings and patient's responses to suicide screening on admission to MD, no indication for psych consult at this time
per MD. Patient able to turn himself in bed/sit on side of bed to urinate into basin, uses call urbina appropriately, bed bath provided this AM and wound care at bedside to assess groin rash. PT/OT consults placed. Patient states no concerns at this
time.
[2024-12-09 17:06] LABS: Glucose - Point of Care 128 mg/dl (70-99)
--- NOTE | 2024-12-09 17:41 | CM ---
Patient seen at bedside-homeless, morbid obesity
Patient transfer from [facility]
Dx: abdominal cellulitis
CM consult completed-suicidal risk
spoke to hospitalist regarding psych consult-states patient not suicidal
Observation status - reviewed observation form with patient. Placed in chart
Spoke with patient court appointed guardian Ginny Garcia -s
she states the patient is homeless, just started SSI & has psychiatric history. she states dumpster dives for food.
She wants CM to place referrals in [facility]port which she emailed a list of facilities that referrals were sent.
Patient has been seen in the ED for crisis previously.
Discussed with patient CM sending referrals for placement - he states he does not want to use his SSI to pay
He states he uses a wheelchair which was in patient room, stated lives on the streets and goes to [facility] shelters. He reports people give him clothes & food
PLAN: continue efforts for placement, referrals sent in careport
[2024-12-09 21:20] LABS: Glucose - Point of Care 171 mg/dl (70-99)
[2024-12-09 23:15] VITALS: BP 132/89
[2024-12-10 07:14] VITALS: BP 126/72
[2024-12-10 07:19] LABS: Glucose - Point of Care 142 mg/dl (70-99)
[2024-12-10] MEDS: NOVOLOG FLEXPEN-LOW RESISTANCE SC ×3 (08:07→18:30)
[2024-12-10] MEDS: DESENEX/MITRAZOL/ZEASORB 1 APPLIC TOPICAL ×2 (08:09→20:40)
[2024-12-10] MEDS: LOVENOX 60 MG SC ×2 (08:09→20:40)
--- NOTE | 2024-12-10 10:40 | PTCARENOTE ---
pt cooperative and pleasant within the room with care. pt using basin for urination and bsc at this time for bowel movements. pt was having full conversation within the room with himself and grabbing for things in the air. made aware and this RN
requested psych consult.
[2024-12-10 11:37] LABS: Glucose - Point of Care 149 mg/dl (70-99)
--- NOTE | 2024-12-10 14:50 | CS.PSYCHR ---
Consult Summary - Psychiatry
-
Pt is a yo male with morbid obesity, diabetes and unspecified hx of psychosis, who returned to ED as a transfer from [facility]. Pt originally presented to ED 12/02/[address]- appointed guardian for evaluation of rash of lower
abdomen, genitalia and rectal area. He was transferred to [facility] for treatment of rash/cellulitis as they are better equipped to manage morbidly obese patients. Pt was treated with IV Vancomycin and Miconazole powder, states he feels much better. Pt
seen resting in bed, in no distress, watching TV. Pt denies any distressing thoughts or hallucinations. Pt states he is able to calm himself, think about better things. He denies feeling depressed. Pt's answers are somewhat roundabout, but he
shows no overt signs of hallucinations or agitation. He denies being on any psychotropic medications.
Psych Hx: pt's guardian noted reporting pt has unspecified psychiatric hx, no details available; pt is a very limited historian. Seen by Dr Carrasquillo during previous admission to 10/31/24
PMH: morbid obesity- admission weight 255 kg (560 lb)
SH: pt reportedly lived in [place], family could not be located. HS omi, had a room in a house in the past, currently homeless, uses wheelchair, stays in [facility] shelters
MSE: alert, oriented, calm, cooperative. Making eye contact, in no apparent distress. Mood stable, affect appropriate. Speech coherent, thought circumstantial. No overt signs of hallucinations or delusions. Denies SI. Insight limited
Imp: Hx of unspecified psychotic d/o; currently appears stable, not an any psychiatric medication
Rec: continue current management, social placement effort
Will follow peripherally
[2024-12-10 15:10] VITALS: BP 170/91; PULSE 100; O2SAT 97
[2024-12-10 15:12] VITALS: BP 135/80
[2024-12-10 15:19] VITALS: BP 170/91; PULSE 100; O2SAT 97
--- NOTE | 2024-12-10 15:25 | W.PN.HOSP.TC ---
Today's Communication/Plan
-
Continue supportive care.
Placement
Assessment / Plan
Assessment / Plan
IMPRESSION/PLAN:
#fungal rash with bacterial infection
treated at [facility] with IV vanco and miconazole powder
- Admit to med/surg
- consult case management
- consult PT/OT
- consult wound care
#morbid obesity
BMI 254.919 kg
- encourage balanced diet and exercise for a goal of weight loss
- affects all aspects of care
#diabetes melitis
A1C 6.9 ([facility])
- AccuCheck AC & HS
- SSI
Prior history of psychosis.
Currently stable with no evidence of decompensation.
No reported suicidal ideation upon admission.
Psychiatry input appreciated. No evidence for decompensation.
Code status: full code
DVT prophylaxis: Lovenox Sq
Anticipated Discharge: Within 24 hours
Subjective/Interval History
-
Date of Service: December 10, 2024
Objective Data
-
Vital Signs:
Vital Signs
Temp Pulse Resp BP Pulse Ox
98.5 F 92 18 135/80 98
12/10/24 15:12 12/10/24 15:12 12/10/24 15:12 12/10/24 15:12 12/10/24 15:12
I&O
12/09/24 12/10/24 12/11/24
06:59 06:59 06:59
Intake Total 660 / 660 2200 / 2200
Output Total 700 / 700 925 / 925
Balance -40 / -40 1275 / 1275
Physical Exam
-
General: Well Developed and No Apparent Distress
HEENT: Normocephalic, Atraumatic and Moist Mucous Membranes
Respiratory: Clear to Auscultation
Cardiac: Regular Rhythm and S1/S2; Negative Murmur, Rub or Gallop
GI: Soft, Nontender, Nondistended and Normal Bowel Sounds; Negative Organomegaly
Rectal: Deferred by Provider
Musculoskeletal: No Clubbing, No Cyanosis and No Edema
Skin: Negative Rash
Neuro: Nonfocal/Grossly Intact
--- NOTE | 2024-12-10 16:35 | CM ---
Patient seen at bedside
Psychiatry consult
CM sent additonal referrals in careport
Spoke to angy Garcia regarding referrals sent
Spoke with Kirsten spence/jossie planner/scheduler at [facility] & obtained additional information
PLAN: CM continue efforts to obtain placement
[2024-12-10 16:44] LABS: Glucose - Point of Care 153 mg/dl (70-99)
[2024-12-10 17:01] VITALS: BP 170/91; PULSE 100; O2SAT 97
[2024-12-10 21:24] LABS: Glucose - Point of Care 169 mg/dl (70-99)
[2024-12-10 23:14] VITALS: BP 133/63
[2024-12-11 07:20] VITALS: BP 135/63
[2024-12-11 07:27] LABS: Glucose - Point of Care 136 mg/dl (70-99)
[2024-12-11] MEDS: NOVOLOG FLEXPEN-LOW RESISTANCE SC ×3 (08:27→16:50)
[2024-12-11] MEDS: DESENEX/MITRAZOL/ZEASORB 1 APPLIC TOPICAL ×2 (08:28→21:18)
[2024-12-11] MEDS: LOVENOX 60 MG SC ×2 (08:29→21:19)
[2024-12-11 12:22] LABS: Glucose - Point of Care 148 mg/dl (70-99)
--- NOTE | 2024-12-11 13:06 | W.PN.UPDATE ---
Update Note
Progress Note Update
patient seen chart reviewed. this patient is known to me from prior admit to er at . he is homeless. when i saw him in the er it was unclear that he had a legal guardian. he left er upon his own request. he was generally cooperative for the
few days he was here. at this point he is continuing to be cooperative. he is not very forthcoming with information. when you ask him a ? he ruminates upon a fragment of the question repeating it and looking quizzical. he is currently taking no
psychotropic medication. it is not clear to me whether psych meds would change his presentation as there is no acute agitation. he does not appear to be acutely depressed. .there is not clear psychosis. would continue to monitor. i understand snf
being sought for him. will follow loosely.
[2024-12-11 15:05] VITALS: BP 134/76
--- NOTE | 2024-12-11 16:18 | W.PN.HOSP.TC ---
Today's Communication/Plan
-
Placement
Assessment / Plan
Assessment / Plan
IMPRESSION/PLAN:
#fungal rash with bacterial infection
treated at [facility] with IV vanco and miconazole powder
- Admit to med/surg
- consult case management
- consult PT/OT
- consult wound care
#morbid obesity
BMI 254.919 kg
- encourage balanced diet and exercise for a goal of weight loss
- affects all aspects of care
#diabetes melitis
A1C 6.9 ([facility])
- AccuCheck AC & HS
- SSI
Prior history of psychosis.
Currently stable with no evidence of decompensation.
No reported suicidal ideation upon admission.
Psychiatry input appreciated. No evidence for decompensation.
Code status: full code
DVT prophylaxis: Lovenox Sq
Anticipated Discharge: 24 - 48 hours
Subjective/Interval History
-
Date of Service: December 11, 2024
Objective Data
-
Vital Signs:
Vital Signs
Temp Pulse Resp BP Pulse Ox
98.5 F 76 17 134/76 96
12/11/24 15:05 12/11/24 15:05 12/11/24 15:05 12/11/24 15:05 12/11/24 15:05
I&O
12/10/24 12/11/24 12/12/24
06:59 06:59 06:59
Intake Total 2200 / 2200 1940 / 1940
Output Total 925 / 925 2800 / 2800
Balance 1275 / 1275 -860 / -860
Physical Exam
-
General: Well Developed and No Apparent Distress
HEENT: Normocephalic, Atraumatic and Moist Mucous Membranes
Respiratory: Clear to Auscultation
Cardiac: Regular Rhythm and S1/S2; Negative Murmur, Rub or Gallop
GI: Soft, Nontender, Nondistended and Normal Bowel Sounds; Negative Organomegaly
Rectal: Deferred by Provider
Musculoskeletal: No Clubbing, No Cyanosis and No Edema
Skin: Negative Rash
Neuro: Nonfocal/Grossly Intact
[2024-12-11 16:47] LABS: Glucose - Point of Care 140 mg/dl (70-99)
[2024-12-11 21:36] LABS: Glucose - Point of Care 136 mg/dl (70-99)
[2024-12-11 23:15] VITALS: BP 132/68
[2024-12-12 07:20] VITALS: BP 140/72
[2024-12-12 07:37] LABS: Glucose - Point of Care 129 mg/dl (70-99)
[2024-12-12] MEDS: NOVOLOG FLEXPEN-LOW RESISTANCE SC ×3 (07:56→17:32)
[2024-12-12] MEDS: LOVENOX 60 MG SC ×2 (08:13→20:03)
[2024-12-12] MEDS: DESENEX/MITRAZOL/ZEASORB 1 APPLIC TOPICAL ×2 (08:14→20:03)
--- NOTE | 2024-12-12 09:57 | W.PN.UPDATE ---
Update Note
Progress Note Update
patient seen chart reviewed. discussed with nursing. mr harris was sitting quietly in bed. i do feel he is likely schizophrenic and /or autistic spectrum disorder. it is very hard to get any sort of history from him. sometimes it is hard to
understand the brief answer that he may give . sometimes he asks 'what' and you repeat the question and still do not get a to the point answer. nursing has told me they see him sometimes seeming to pluck things from the air and talking to himself.
he told me he is not hearing voice ( i think he told me that). he also told me he is 'very good'. he has taken psych meds in the past though not lately and he does not seem to feel he needs meds now. he is happy with the prospect of going to an
snf. it was not easy for him on the street obviously. there are down sides to antipsychotics for him....most importantly weight gain. will follow.
[2024-12-12 12:01] LABS: Glucose - Point of Care 148 mg/dl (70-99)
--- NOTE | 2024-12-12 12:05 | CM ---
Addendum entered by Marjorie White 12/12/24 14:52:
Level 2 needs to be signed by guardian then stent to [facility].
Bed search continues, no accepting facility found as of today.
Plan: skilled rehab/placement
Original Note:
CM continues efforts for placement.
Additional referrals sent in [facility] per guardians request.
Spoke with Guardian Ginny Garcia [phone] (she became guardian earlier this month), needed information for PASRR.
Ginny gave this CM name of [facility] general manager- Trent- [phone].
Spoke with Trent, he is community outreach only and was involved only for getting the patient off the street. patient did not come in for mental health and was not followed for mental health as far as he knows. he was unsure if ther were any
admissions for mental health.
TC to Rosalba KRISHNAMURTHY to see if patient would need a level 2 PASRR, she is familiar with the patient and said he would need a level 2 completed.
[2024-12-12 15:10] VITALS: BP 139/67
--- NOTE | 2024-12-12 15:14 | W.PN.HOSP.TC ---
Today's Communication/Plan
-
Ongoing disposition efforts.
Assessment / Plan
Assessment / Plan
IMPRESSION/PLAN:
#fungal rash with bacterial infection
treated at [facility] with IV vanco and miconazole powder
- Admit to med/surg
- consult case management
- consult PT/OT
- consult wound care
#morbid obesity
BMI 254.919 kg
- encourage balanced diet and exercise for a goal of weight loss
- affects all aspects of care
#diabetes melitis
A1C 6.9 ([facility])
- AccuCheck AC & HS
- SSI
Prior history of psychosis.
Currently stable with no evidence of decompensation.
No reported suicidal ideation upon admission.
Psychiatry input appreciated. No evidence for decompensation.
Code status: full code
DVT prophylaxis: Lovenox Sq
Anticipated Discharge: 24 - 48 hours
Subjective/Interval History
-
Date of Service: December 12, 2024
Objective Data
-
Vital Signs:
Vital Signs
Temp Pulse Resp BP Pulse Ox
97.6 F 92 17 140/72 99
12/12/24 07:20 12/12/24 07:20 12/12/24 07:20 12/12/24 07:20 12/12/24 07:20
I&O
12/11/24 12/12/24 12/13/24
06:59 06:59 06:59
Intake Total 1940 / 1940 1680 / 1680
Output Total 2800 / 2800 2250 / 2250
Balance -860 / -860 -570 / -570
Physical Exam
-
General: Well Developed and No Apparent Distress
HEENT: Normocephalic, Atraumatic and Moist Mucous Membranes
Respiratory: Clear to Auscultation
Cardiac: Regular Rhythm and S1/S2; Negative Murmur, Rub or Gallop
GI: Soft, Nontender, Nondistended and Normal Bowel Sounds; Negative Organomegaly
Rectal: Deferred by Provider
Musculoskeletal: No Clubbing, No Cyanosis and No Edema
Skin: Negative Rash
Neuro: Nonfocal/Grossly Intact
--- NOTE | 2024-12-12 16:00 | WOUNDNOTE ---
Alejandro SHETTY (DISTAL)(photo taken by CLOVIS Brian)
--- NOTE | 2024-12-12 16:00 | WOUNDNOTE ---
Alejandro SHETTY (PROXIMAL)(photo taken by CLOVIS Brian)
--- NOTE | 2024-12-12 16:05 | WOUNDNOTE ---
[facility] RN NOTE: Reviewed pictures of left groin and scrotal wound from RN, Kailey. Will confirm orders with hospitalist. Discharge, care plan and orders updated. Will continue to follow with patient during in-patient stay.
[2024-12-12 17:08] LABS: Glucose - Point of Care 148 mg/dl (70-99)
--- NOTE | 2024-12-12 18:34 | PTCARENOTE ---
pt wound care complete by this nurse this shift. this RN reached out to wound care about groin wound with serosanguineous drainage. new orders placed in chart and applied by this RN. pt cooperative and pleasant within the room with care. pt using
basin for urination and bsc at this time for bowel movements. desenex powder applied to scrotal area, groin and abdominal folds. psych saw pt this morning and will continue to monitor during his admission
[2024-12-12 21:18] LABS: Glucose - Point of Care 139 mg/dl (70-99)
[2024-12-12 23:08] VITALS: BP 152/79
[2024-12-13 07:45] LABS: Glucose - Point of Care 143 mg/dl (70-99)
[2024-12-13 07:46] VITALS: BP 149/75
[2024-12-13] MEDS: NOVOLOG FLEXPEN-LOW RESISTANCE SC ×3 (07:48→17:28)
[2024-12-13] MEDS: LOVENOX 60 MG SC ×2 (09:23→22:24)
[2024-12-13] MEDS: DESENEX/MITRAZOL/ZEASORB 1 APPLIC TOPICAL ×2 (09:24→22:28)
--- NOTE | 2024-12-13 10:42 | CM ---
Reviewed the chart notes. Waiting on guardian's signature on Level II PASRR paperwork before it can be forwarded to [facility]. CM continues to be available to patient/family and is monitoring medical plan for needs at discharge.
Plan: Discharge to SNF/rehab once Level II PASRR completed and approved and bed secured.
[2024-12-13 11:29] LABS: Glucose - Point of Care 161 mg/dl (70-99)
--- NOTE | 2024-12-13 11:54 | W.PN.UPDATE ---
Update Note
Progress Note Update
patient seen chart reviewed . discussed w nursing. mr harris is much the same. he is a man of very few words and offers no complaints. he does not have any acute psych sx. he denies at this point hallucinations. i would say he has many
characteristics of chronic schizophrenia ....negataive not positive sx and these sx do not typically respond to antipsychotics in any case. he is generally cooperative according to nursing. psych will sign off at this point.
--- NOTE | 2024-12-13 13:22 | W.PN.HOSP.TC ---
Today's Communication/Plan
-
Pending placement
Assessment / Plan
Assessment / Plan
IMPRESSION/PLAN:
#fungal rash with bacterial infection
treated at [facility] with IV vanco and miconazole powder
- Admit to med/surg
- consult case management
- consult PT/OT
- consult wound care
#morbid obesity
BMI 254.919 kg
- encourage balanced diet and exercise for a goal of weight loss
- affects all aspects of care
#diabetes melitis
A1C 6.9 ([facility])
- AccuCheck AC & HS
- SSI
Prior history of psychosis.
Currently stable with no evidence of decompensation.
No reported suicidal ideation upon admission.
Psychiatry input appreciated. No evidence for decompensation.
Code status: full code
DVT prophylaxis: Lovenox Sq
Anticipated Discharge: 24 - 48 hours
Subjective/Interval History
-
Date of Service: December 13, 2024
Objective Data
-
Vital Signs:
Vital Signs
Temp Pulse Resp BP Pulse Ox
97.5 F 90 18 149/75 99
12/13/24 07:46 12/13/24 07:46 12/13/24 07:46 12/13/24 07:46 12/13/24 07:46
I&O
12/12/24 12/13/24 12/14/24
06:59 06:59 06:59
Intake Total 1680 / 1680 2840 / 2840
Output Total 2250 / 2250 2450 / 2450
Balance -570 / -570 390 / 390
Physical Exam
-
General: Well Developed and No Apparent Distress
HEENT: Normocephalic, Atraumatic and Moist Mucous Membranes
Respiratory: Clear to Auscultation
Cardiac: Regular Rhythm and S1/S2; Negative Murmur, Rub or Gallop
GI: Soft, Nontender, Nondistended and Normal Bowel Sounds; Negative Organomegaly
Rectal: Deferred by Provider
Musculoskeletal: No Clubbing, No Cyanosis and No Edema
Skin: Negative Rash
Neuro: Nonfocal/Grossly Intact
[2024-12-13 15:06] VITALS: BP 124/70
[2024-12-13 17:17] LABS: Glucose - Point of Care 121 mg/dl (70-99)
[2024-12-13 21:56] LABS: Glucose - Point of Care 124 mg/dl (70-99)
[2024-12-13 23:04] VITALS: BP 116/80
[2024-12-14 07:31] VITALS: BMI 75.7
[2024-12-14 07:40] VITALS: BP 139/66
[2024-12-14] MEDS: LOVENOX 60 MG SC ×2 (08:55→22:22)
[2024-12-14] MEDS: DESENEX/MITRAZOL/ZEASORB 1 APPLIC TOPICAL ×2 (08:56→22:35)
[2024-12-14 09:12] LABS: Glucose - Point of Care 122 mg/dl (70-99)
[2024-12-14] MEDS: NOVOLOG FLEXPEN-LOW RESISTANCE SC ×3 (09:12→16:48)
--- NOTE | 2024-12-14 10:41 | W.PN.HOSP.TC ---
Today's Communication/Plan
-
await placement
Assessment / Plan
Assessment / Plan
IMPRESSION/PLAN:
#fungal rash with bacterial infection
treated at [facility] with IV vanco and miconazole powder
- consult case management
- consult PT/OT
- consult wound care
#morbid obesity due to excess calories -Class IV
- encourage balanced diet and exercise for a goal of weight loss
- affects all aspects of care
#diabetes melitis
A1C 6.9 ([facility])
- AccuCheck AC & HS
- SSI
Prior history of psychosis.
Currently stable with no evidence of decompensation.
No reported suicidal ideation upon admission.
Psychiatry input appreciated. No evidence for decompensation.
Code status: full code
DVT prophylaxis: Lovenox Sq 60mg q12h
Medically stable. Await placement. Per CM correspondence- Awaiting Level II PASRR to be completed.
Anticipated Discharge: > 48 hours
Subjective/Interval History
-
Date of Service: December 14, 2024
Watching TV in bed
comfortable
no complaints
Objective Data
-
Vital Signs:
Vital Signs
Temp Pulse Resp BP Pulse Ox
98.2 F 86 16 139/66 96
12/14/24 07:40 12/14/24 07:40 12/14/24 07:40 12/14/24 07:40 12/14/24 07:40
I&O
12/13/24 12/14/24 12/15/24
06:59 06:59 06:59
Intake Total 2840 / 2840 1480 / 1480
Output Total 2450 / 2450 1345 / 1345
Balance 390 / 390 135 / 135
Physical Exam
-
General: Well Developed, Well Nourished, No Apparent Distress and Morbidly Obese
HEENT: Normocephalic, Atraumatic and Moist Mucous Membranes
Respiratory: Decreased Breath Sounds
Cardiac: Regular Rhythm and S1/S2; Negative Murmur, Rub or Gallop
GI: Soft, Nontender, Nondistended and Normal Bowel Sounds; Negative Organomegaly
Rectal: Deferred by Provider
Musculoskeletal: No Clubbing, No Cyanosis and No Edema
Skin: Negative Rash
Neuro: Awake and Nonfocal/Grossly Intact
[2024-12-14 11:55] LABS: Glucose - Point of Care 148 mg/dl (70-99)
[2024-12-14 15:10] VITALS: BP 135/83
[2024-12-14 16:47] LABS: Glucose - Point of Care 117 mg/dl (70-99)
[2024-12-14 22:40] LABS: Glucose - Point of Care 121 mg/dl (70-99)
[2024-12-14 23:25] VITALS: BP 135/61
[2024-12-15 06:00] VITALS: BMI 74.4
[2024-12-15 07:40] VITALS: BP 158/100
[2024-12-15 07:44] LABS: Glucose - Point of Care 143 mg/dl (70-99)
[2024-12-15] MEDS: NOVOLOG FLEXPEN-LOW RESISTANCE SC (08:12)
[2024-12-15] MEDS: LOVENOX 60 MG SC ×2 (08:55→20:28)
[2024-12-15] MEDS: DESENEX/MITRAZOL/ZEASORB 1 APPLIC TOPICAL ×2 (08:55→20:29)
--- NOTE | 2024-12-15 10:51 | W.PN.HOSP.TC ---
Today's Communication/Plan
-
Medically stable. Await placement. Per CM correspondence- Awaiting Level II PASRR to be completed.
Encourage to increase water intake
Assessment / Plan
Assessment / Plan
IMPRESSION/PLAN:
#fungal rash with bacterial infection
treated at [facility] with IV vanco and miconazole powder
- consult case management
- consult PT/OT
- consult wound care
#morbid obesity due to excess calories -Class IV
- encourage balanced diet and exercise for a goal of weight loss
- affects all aspects of care
#diabetes melitis
A1C 6.9 ([facility])
- AccuCheck AC & HS
- SSI. POC 143
Prior history of psychosis.
Currently stable with no evidence of decompensation.
No reported suicidal ideation upon admission.
Psychiatry input appreciated. No evidence for decompensation.
Code status: full code
DVT prophylaxis: Lovenox Sq 60mg q12h
Medically stable. Await placement. Per CM correspondence- Awaiting Level II PASRR to be completed.
Anticipated Discharge: > 48 hours
Subjective/Interval History
-
Date of Service: December 15, 2024
watching TV
comfortable
Objective Data
-
Vital Signs:
Vital Signs
Temp Pulse Resp BP Pulse Ox
98.2 F 103 16 158/100 97
12/15/24 07:40 12/15/24 07:40 12/15/24 07:40 12/15/24 07:40 12/15/24 07:40
I&O
12/14/24 12/15/24 12/16/24
06:59 06:59 06:59
Intake Total 1480 / 1480 840 / 840
Output Total 1345 / 1345 550 / 550 700 / 700
Balance 135 / 135 290 / 290 -700 / -700
Physical Exam
-
General: Well Developed, Well Nourished, No Apparent Distress and Morbidly Obese
HEENT: Normocephalic, Atraumatic and Moist Mucous Membranes
Respiratory: Decreased Breath Sounds
Cardiac: Regular Rhythm and S1/S2; Negative Murmur, Rub or Gallop
GI: Soft, Nontender, Nondistended and Normal Bowel Sounds; Negative Organomegaly
Rectal: Deferred by Provider
Musculoskeletal: No Clubbing, No Cyanosis and No Edema
Skin: Negative Rash
Neuro: Awake and Nonfocal/Grossly Intact
[2024-12-15 12:03] LABS: Glucose - Point of Care 183 mg/dl (70-99)
[2024-12-15 12:30] VITALS: BP 109/53
[2024-12-15] MEDS: NOVOLOG FLEXPEN-LOW RESISTANCE 1 UNITS SC (12:33)
[2024-12-15 15:30] VITALS: BP 162/92
[2024-12-15 17:14] LABS: Glucose - Point of Care 203 mg/dl (70-99)
[2024-12-15] MEDS: NOVOLOG FLEXPEN-LOW RESISTANCE 2 UNITS SC (17:18)
[2024-12-15 17:59] VITALS: BP 147/69
[2024-12-15 22:15] LABS: Glucose - Point of Care 178 mg/dl (70-99)
[2024-12-15 23:15] VITALS: BP 142/76
[2024-12-16 05:54] VITALS: BMI 74.2
[2024-12-16 07:50] VITALS: BP 168/88
[2024-12-16 07:57] LABS: Glucose - Point of Care 142 mg/dl (70-99)
[2024-12-16] MEDS: LOVENOX 60 MG SC ×2 (08:53→20:46)
[2024-12-16] MEDS: NOVOLOG FLEXPEN-LOW RESISTANCE SC ×2 (08:53→17:34)
[2024-12-16] MEDS: DESENEX/MITRAZOL/ZEASORB 1 APPLIC TOPICAL ×2 (09:06→20:47)
--- NOTE | 2024-12-16 09:22 | CM ---
Addendum entered by Marjorie White 12/16/24 13:03:
Level 2 emailed to Rosalba at [facility] at [email or web address].
Original Note:
TC to patients guardian Ginny Garcia, faxed forms for level 2 to be signed to [phone].
Additional skilled referrals sent after discussion with guardian.
Await accepting bed and level 2 completion.
Plan: skilled rehab once bed available and level 2 completed.
[2024-12-16 11:43] LABS: Glucose - Point of Care 180 mg/dl (70-99)
[2024-12-16] MEDS: NOVOLOG FLEXPEN-LOW RESISTANCE 1 UNITS SC (11:53)
--- NOTE | 2024-12-16 12:21 | W.PN.HOSP.TC ---
Today's Communication/Plan
-
Placement
Assessment / Plan
Assessment / Plan
IMPRESSION/PLAN:
#fungal rash with bacterial infection
treated at [facility] with IV vanco and miconazole powder
- consult case management
- consult PT/OT
- consult wound care
#morbid obesity due to excess calories -Class IV
- encourage balanced diet and exercise for a goal of weight loss
- affects all aspects of care
#diabetes melitis
A1C 6.9 ([facility])
- AccuCheck AC & HS
- SSI. POC 143
Prior history of psychosis.
Currently stable with no evidence of decompensation.
No reported suicidal ideation upon admission.
Psychiatry input appreciated. No evidence for decompensation.
Code status: full code
DVT prophylaxis: Lovenox Sq 60mg q12h
Medically stable. Await placement. Per CM correspondence- Awaiting Level II PASRR to be completed.
Anticipated Discharge: 24 - 48 hours
Subjective/Interval History
-
Date of Service: December 16, 2024
Objective Data
-
Vital Signs:
Vital Signs
Temp Pulse Resp BP Pulse Ox
97.8 F 90 20 168/88 95
12/16/24 07:50 12/16/24 07:50 12/16/24 07:50 12/16/24 07:50 12/16/24 08:00
I&O
12/15/24 12/16/24 12/17/24
06:59 06:59 06:59
Intake Total 840 / 840 1320 / 1320
Output Total 550 / 550 2124 / 2124
Balance 290 / 290 -805 / -805
Physical Exam
-
General: Well Developed, Well Nourished, No Apparent Distress and Morbidly Obese
HEENT: Normocephalic, Atraumatic and Moist Mucous Membranes
Respiratory: Decreased Breath Sounds
Cardiac: Regular Rhythm and S1/S2; Negative Murmur, Rub or Gallop
GI: Soft, Nontender, Nondistended and Normal Bowel Sounds; Negative Organomegaly
Rectal: Deferred by Provider
Musculoskeletal: No Clubbing, No Cyanosis and No Edema
Skin: Negative Rash
Neuro: Awake and Nonfocal/Grossly Intact
[2024-12-16 15:43] VITALS: BP 114/39
[2024-12-16 16:54] LABS: Glucose - Point of Care 120 mg/dl (70-99)
[2024-12-16 21:43] LABS: Glucose - Point of Care 151 mg/dl (70-99)
[2024-12-16 23:06] VITALS: BP 134/72
[2024-12-17 07:44] LABS: Glucose - Point of Care 116 mg/dl (70-99)
[2024-12-17] MEDS: NOVOLOG FLEXPEN-LOW RESISTANCE SC ×2 (07:45→16:54)
[2024-12-17 07:46] VITALS: BP 112/61
[2024-12-17] MEDS: LOVENOX 60 MG SC ×2 (08:41→19:37)
[2024-12-17] MEDS: DESENEX/MITRAZOL/ZEASORB 1 APPLIC TOPICAL ×2 (08:41→19:38)
[2024-12-17 11:23] LABS: Glucose - Point of Care 182 mg/dl (70-99)
--- NOTE | 2024-12-17 11:29 | CM ---
Addendum entered by Marjorie White 12/17/24 14:03:
Received level 2 determination from the [facility]- long term Appropriate.
Appeals information received and reviewed with guardian Toshia Garcia- no need to appeal.
Discussed possibility of skilled rehab/LTC at [facility]
Spoke with Sayda from [facility] [phone], she may have a bed early next week and wants to speak with guardian and her director to see if they can accommodate, await TCB.
Discussed obtaining clean clothing for patient with guardian and she will look into purchasing.
Toshia will be in to see patient this week.
Addendum entered by Marjorie White 12/17/24 13:19:
TC from SHOSHANA Curtis at [facility] following Mike. She stated patient does have long filler cigar roller machine support services and will need authorization for skilled rehab.
Kirsten would like to be updated when bed found and Level 2 completed. Kirsten p# [phone].
Original Note:
Resolution Analyst Maile Harris from [employer] presented to hospital to serve patient with petition for perm. guardianship.
Spoke with Guardian Ginny Garcia who was in agreement with patient being served.
Copy given to CM at hospital to be scanned to chart and copy given to patient and explained by Maile Harris esq.
[2024-12-17] MEDS: NOVOLOG FLEXPEN-LOW RESISTANCE 1 UNITS SC (11:45)
--- NOTE | 2024-12-17 14:49 | PTCARENOTE ---
Patient's urine foul smelling, cloudy/milky with some sediment. Patient urinating into basin, continent of large loose BM into commode this afternoon. MD made aware of patient's urine, patient bladder scanned by tech per MD request, 0ml found on
bladder scan. Patient states no complaints at this time, MD made aware of bladder scan result, no new orders at this time.
[2024-12-17 15:56] VITALS: BP 125/70
--- NOTE | 2024-12-17 16:48 | W.PN.HOSP.TC ---
Today's Communication/Plan
-
Ongoing placement
Assessment / Plan
Assessment / Plan
IMPRESSION/PLAN:
#fungal rash with bacterial infection
treated at [facility] with IV vanco and miconazole powder
- consult case management
- consult PT/OT
- consult wound care
#morbid obesity due to excess calories -Class IV
- encourage balanced diet and exercise for a goal of weight loss
- affects all aspects of care
#diabetes melitis
A1C 6.9 ([facility])
- AccuCheck AC & HS
- SSI. POC 143
Prior history of psychosis.
Currently stable with no evidence of decompensation.
No reported suicidal ideation upon admission.
Psychiatry input appreciated. No evidence for decompensation.
Code status: full code
DVT prophylaxis: Lovenox Sq 60mg q12h
Medically stable. Await placement. Per CM correspondence- Awaiting Level II PASRR to be completed.
Anticipated Discharge: > 48 hours
Subjective/Interval History
-
Date of Service: December 17, 2024
Objective Data
-
Vital Signs:
Vital Signs
Temp Pulse Resp BP Pulse Ox
98.4 F 95 17 125/70 96
12/17/24 15:56 12/17/24 15:56 12/17/24 15:56 12/17/24 15:56 12/17/24 15:56
I&O
12/16/24 12/17/24 12/18/24
06:59 06:59 06:59
Intake Total 1320 / 1320 960 / 960
Output Total 5 / 2124 300 / 300 50 / 50
Balance -805 / -805 660 / 660 -50 / -50
Physical Exam
-
General: Well Developed, Well Nourished, No Apparent Distress and Morbidly Obese
HEENT: Normocephalic, Atraumatic and Moist Mucous Membranes
Respiratory: Decreased Breath Sounds
Cardiac: Regular Rhythm and S1/S2; Negative Murmur, Rub or Gallop
GI: Soft, Nontender, Nondistended and Normal Bowel Sounds; Negative Organomegaly
Rectal: Deferred by Provider
Musculoskeletal: No Clubbing, No Cyanosis and No Edema
Skin: Negative Rash
Neuro: Awake and Nonfocal/Grossly Intact
[2024-12-17 16:50] LABS: Glucose - Point of Care 149 mg/dl (70-99)
[2024-12-17 21:56] LABS: Glucose - Point of Care 143 mg/dl (70-99)
[2024-12-17 23:08] VITALS: BP 141/78
--- NOTE | 2024-12-18 04:34 | DOWNTIME ---
There was a [employer] Client Helminthologist Downtime on 12/18/2024 from 0100 to 12/19/2023 at 0420 . Downtime documentation of patient's care, including medication administrations, has been reconciled in the electronic record per guidelines. Refer to the
patient's paper chart under the miscellaneous tab to see printed paper medication records and downtime forms.
[2024-12-18 07:35] VITALS: BP 110/62
[2024-12-18 07:36] LABS: Glucose - Point of Care 127 mg/dl (70-99)
[2024-12-18] MEDS: NOVOLOG FLEXPEN-LOW RESISTANCE SC ×3 (07:56→16:17)
[2024-12-18] MEDS: DESENEX/MITRAZOL/ZEASORB 1 APPLIC TOPICAL ×2 (07:57→21:37)
[2024-12-18] MEDS: LOVENOX 60 MG SC ×2 (07:57→21:36)
[2024-12-18 11:44] LABS: Glucose - Point of Care 133 mg/dl (70-99)
--- NOTE | 2024-12-18 12:49 | CM ---
Addendum entered by Marjorie White 12/18/24 16:10:
SHOSHANA from [facility] called to check on disposition and if bed has been found. Kirsten offering assistance if needed. She is off the rest of the week, please contact Arti (MORRO) with any needs p#[phone].
Original Note:
TC fro Sayda, [facility].
Janki will come see patient tomorrow to determine if they can accept patient.
No bed presently available.
Sayda has spoken with guardian.
Plan: [facility] if accepted. Will need insurance Auth.
[2024-12-18] MEDS: TYLENOL 650 MG PO (12:59)
[2024-12-18 13:12] VITALS: BP 160/108; PULSE 105; O2SAT 95
--- NOTE | 2024-12-18 14:09 | W.PN.HOSP.TC ---
Today's Communication/Plan
-
Awaiting placement
Check UA and reflex to culture
Monitor for fever
Assessment / Plan
Assessment / Plan
IMPRESSION/PLAN:
#fungal rash with bacterial infection
treated at [facility] with IV vanco and miconazole powder
- consult case management
- consult PT/OT
- consult wound care
#morbid obesity due to excess calories -Class IV
- encourage balanced diet and exercise for a goal of weight loss
- affects all aspects of care
#diabetes melitis
A1C 6.9 ([facility])
- AccuCheck AC & HS
- SSI. POC 143
Nursing reports malodorous urine
Patient denies any urinary complaints
Will check urinalysis and reflex to culture
Prior history of psychosis.
Currently stable with no evidence of decompensation.
No reported suicidal ideation upon admission.
Psychiatry input appreciated. No evidence for decompensation.
Code status: full code
DVT prophylaxis: Lovenox Sq 60mg q12h
Medically stable. Await placement. Per CM correspondence- Awaiting Level II PASRR to be completed.
Anticipated Discharge: Within 24 hours
Subjective/Interval History
-
Date of Service: December 18, 2024
Objective Data
-
Vital Signs:
Vital Signs
Temp Pulse Resp BP Pulse Ox
97.5 F 101 17 110/62 99
12/18/24 07:35 12/18/24 07:35 12/18/24 07:35 12/18/24 07:35 12/18/24 07:35
I&O
12/17/24 12/18/24 12/19/24
06:59 06:59 06:59
Intake Total 960 / 960 2160 / 2160
Output Total 300 / 300 850 / 850
Balance 660 / 660 1310 / 1310
Physical Exam
-
General: Well Developed, Well Nourished, No Apparent Distress and Morbidly Obese
HEENT: Normocephalic, Atraumatic and Moist Mucous Membranes
Respiratory: Decreased Breath Sounds
Cardiac: Regular Rhythm and S1/S2; Negative Murmur, Rub or Gallop
GI: Soft, Nontender, Nondistended and Normal Bowel Sounds; Negative Organomegaly
Rectal: Deferred by Provider
Musculoskeletal: No Clubbing, No Cyanosis and No Edema
Skin: Negative Rash
Neuro: Awake and Nonfocal/Grossly Intact
[2024-12-18 15:24] VITALS: BP 96/55
[2024-12-18 16:12] LABS: Glucose - Point of Care 132 mg/dl (70-99)
--- NOTE | 2024-12-18 18:11 | PTCARENOTE ---
Patient did hygiene care with purple wipes and brushed teeth during A.M care. Pt insists on wearing soiled clothing. Clean gowns provided and encouraged. Communicated with MD during shift regarding patients urine yellow, cloudy, and odorous. New
order for urine to be sent. Pt uses basin to urinate in, new basin placed for urine collect.
[2024-12-18 21:37] LABS: Glucose - Point of Care 186 mg/dl (70-99)
[2024-12-18 21:47] LABS: Urine Albumin 3+ (Neg - Trace); Urine Bilirubin Negative (Negative); Urine Character Slightly Cloudy (Clear); Urine Color Yellow; Urine Glucose Negative (Negative); Urine Ketone Negative (Negative); Urine Leukocyte 3+ (Negative); Urine Nitrite Negative (Negative); Urine Occult Blood 3+ (Negative); Urine Urobilinogen Negative (Neg - 1+)
[2024-12-18 22:18] LABS: Urine Squamous Cell 0-2 /LPF (Few); Urine Triple Phosphate Crystal Present
[2024-12-18 22:19] LABS: Urine Amorphous Seen; Urine Bacteria Moderate (Negative); Urine White Cell 40-50 /HPF (0-5)
[2024-12-18 23:23] VITALS: BP 137/76
--- NOTE | 2024-12-19 01:09 | PTCARENOTE ---
Patient ordered take out from his room, he had pizza delivered, he stated that he was thinking about leaving because he gets more food being on the streets than he does here and continued to state he is starving here, so instead of leaving he
decided to order food. Discussed with patient that he is on a restricted diet due to his health hx and we need to monitor his food consumption, he stated 'okay'.
[2024-12-19 07:41] VITALS: BP 173/103
[2024-12-19 07:54] LABS: Glucose - Point of Care 136 mg/dl (70-99)
[2024-12-19] MEDS: NOVOLOG FLEXPEN-LOW RESISTANCE SC (07:56)
[2024-12-19] MEDS: DESENEX/MITRAZOL/ZEASORB 1 APPLIC TOPICAL ×2 (09:19→20:42)
[2024-12-19] MEDS: LOVENOX 60 MG SC ×2 (09:19→20:40)
[2024-12-19 10:00] VITALS: BP 160/76
[2024-12-19 11:56] LABS: Glucose - Point of Care 173 mg/dl (70-99)
[2024-12-19] MEDS: NOVOLOG FLEXPEN-LOW RESISTANCE 1 UNITS SC (12:04)
--- NOTE | 2024-12-19 13:54 | W.PN.HOSP.TC ---
Today's Communication/Plan
-
Occasional dysuria/burning.
Nurse reported foul-smelling urine
Urinalysis abnormal pending cultures.
Possible UTI, although afebrile and nontoxic-appearing
Will give single dose of ceftriaxone pending urine cultures.
Liberalize diet as per patient's request
Assessment / Plan
Assessment / Plan
IMPRESSION/PLAN:
#fungal rash with bacterial infection
treated at [facility] with IV vanco and miconazole powder
- consult case management
- consult PT/OT
- consult wound care
Occasional dysuria/burning.
Nurse reported foul-smelling urine
Urinalysis abnormal pending cultures.
Possible UTI, although afebrile and nontoxic-appearing
Will give single dose of ceftriaxone pending urine cultures.
#morbid obesity due to excess calories -Class IV
- encourage balanced diet and exercise for a goal of weight loss
- affects all aspects of care
#diabetes melitis
A1C 6.9 ([facility])
- AccuCheck AC & HS
- SSI. POC 143
Nursing reports malodorous urine
Patient denies any urinary complaints
Will check urinalysis and reflex to culture
Prior history of psychosis.
Currently stable with no evidence of decompensation.
No reported suicidal ideation upon admission.
Psychiatry input appreciated. No evidence for decompensation.
Code status: full code
DVT prophylaxis: Lovenox Sq 60mg q12h
Medically stable. Await placement. Per CM correspondence- Awaiting Level II PASRR to be completed.
Anticipated Discharge: 24 - 48 hours
Subjective/Interval History
-
Date of Service: December 19, 2024
Objective Data
-
Vital Signs:
Vital Signs
Temp Pulse Resp BP Pulse Ox
98.2 F 90 18 160/76 98
12/19/24 07:41 03/20/25 10:00 12/19/24 07:41 12/19/24 10:00 12/19/24 09:57
I&O
12/18/24 12/19/24 12/20/24
06:59 06:59 06:59
Intake Total 2160 / 2160 1920 / 1920
Output Total 850 / 850 875 / 875
Balance 1310 / 1310 1045 / 1045
Physical Exam
-
General: Well Developed, Well Nourished, No Apparent Distress and Morbidly Obese
HEENT: Normocephalic, Atraumatic and Moist Mucous Membranes
Respiratory: Decreased Breath Sounds
Cardiac: Regular Rhythm and S1/S2; Negative Murmur, Rub or Gallop
GI: Soft, Nontender, Nondistended and Normal Bowel Sounds; Negative Organomegaly
Rectal: Deferred by Provider
Musculoskeletal: No Clubbing, No Cyanosis and No Edema
Skin: Negative Rash
Neuro: Awake and Nonfocal/Grossly Intact
[2024-12-19] MEDS: ROCEPHIN 1000 MG IV (14:36)
[2024-12-19] MEDS: STERILE WATER FOR INJECTION 10 ML IV (14:36)
[2024-12-19 15:23] VITALS: BP 181/84
--- NOTE | 2024-12-19 15:37 | CM ---
Renea from [facility] out to see patient today, their it administrator is still considering admission.
Patient needs a bariatric room/set up.
Sayda from [facility] will reach out to CM tomorrow with determination.
Per Sayda definitely nothing tomorrow, but they are considering next week depending on staffing and bed availability.
Mike was very teary eyed today and said he wanted to be back on the streets and just wanted some food brought in.
CM spoke with patient and explained we are trying to get him somewhere safe where he can hopefully progress in therapy.
Patient is aware he has a guardian and that she is working on getting him some fresh clothing.
He verbalized understanding.
PLan: skilled rehab (will need auth) once bed available.
[2024-12-19 15:51] VITALS: BP 139/77
[2024-12-19 17:53] LABS: Glucose - Point of Care 239 mg/dl (70-99)
[2024-12-19] MEDS: NOVOLOG FLEXPEN-LOW RESISTANCE 2 UNITS SC (17:55)
[2024-12-19 22:01] LABS: Glucose - Point of Care 201 mg/dl (70-99)
[2024-12-19 23:39] VITALS: BP 96/53
[2024-12-20 07:41] VITALS: BP 141/50
[2024-12-20 07:48] LABS: Glucose - Point of Care 127 mg/dl (70-99)
[2024-12-20] MEDS: NOVOLOG FLEXPEN-LOW RESISTANCE SC (07:52)
[2024-12-20] MEDS: LOVENOX 60 MG SC ×2 (07:59→20:40)
[2024-12-20] MEDS: DESENEX/MITRAZOL/ZEASORB 1 APPLIC TOPICAL ×2 (08:02→20:41)
[2024-12-20 11:10] LABS: % Basophils 0.6 % (0-2); % Eosinophils 1.2 % (0-6); % Immature Granulocytes 0.4 % (0-0.5); % Lymphocytes 21.6 % (20.5-51.1); % Monocytes 8.4 % (1.7-9.3); % Neutrophils 67.8 % (42.2-75.2); Absolute Eosinophils 0.1 10^3/uL (0-0.7); Absolute Lymphocytes 1.5 10^3/uL (1.2-3.4); Absolute Monocytes 0.6 10^3/uL (0.1-0.6); Absolute Neutrophils 4.6 10^3/uL (1.4-6.5); Hematocrit 38.6 % (39.0-52.0); Hemoglobin 13.4 g/dL (13.0-18.0); Mean Corp Hgb Conc. 34.7 g/dL (33.0-37.0); Mean Corpuscular Hgb 29.5 pg (27.0-31.0); Mean Corpuscular Volume 84.8 fL (80.0-94.0); Mean Platelet Volume 10.2 fL (7.4-10.4); Nucleated Red Blood Cells % 0 % (-); Platelet Count 286 10^3/uL (130-400); Red Blood Cell Count 4.55 10^6/uL (4.70-6.10); Red Cell Dist. Width 13.8 % (11.5-14.5); White Blood Cell Count 6.8 10^3/uL (4.8-10.8)
[2024-12-20 11:26] LABS: Blood Urea Nitrogen 16 mg/dl (9-20); Calcium 9.2 mg/dl (8.4-10.2); Carbon Dioxide 27 mmol/L (22-30); Chloride 107 mmol/L (98-107); Estimated Creatinine Clearance > 125 ml/min; Glucose 153 mg/dl (70-99); Potassium 3.8 mmol/L (3.5-5.1); Sodium 140 mmol/L (135-145); eGFR > 60.00
[2024-12-20 11:58] LABS: Glucose - Point of Care 172 mg/dl (70-99)
[2024-12-20] MEDS: STERILE WATER FOR INJECTION 10 ML IV (12:25)
[2024-12-20] MEDS: NOVOLOG FLEXPEN-LOW RESISTANCE 1 UNITS SC (12:26)
[2024-12-20] MEDS: ROCEPHIN 1000 MG IV (12:26)
--- NOTE | 2024-12-20 13:24 | W.PN.HOSP.TC ---
Today's Communication/Plan
-
IV antibiotics/ceftriaxone for UTI
Pending placement
Assessment / Plan
Assessment / Plan
IMPRESSION/PLAN:
#fungal rash with bacterial infection
treated at [facility] with IV vanco and miconazole powder
- consult case management
- consult PT/OT
- consult wound care
UTI.
Complaint of occasional dysuria/burning. Afebrile with no systemic symptoms.
Nurse reported foul-smelling urine
Urine culture with Proteus pending sensitivities
Initiated on ceftriaxone 12/19 to complete 3 to 5 days of treatment.
#morbid obesity due to excess calories -Class IV
- encourage balanced diet and exercise for a goal of weight loss
- affects all aspects of care
#diabetes melitis
A1C 6.9 ([facility])
- AccuCheck AC & HS
- SSI. POC 143
Nursing reports malodorous urine
Patient denies any urinary complaints
Will check urinalysis and reflex to culture
Prior history of psychosis.
Currently stable with no evidence of decompensation.
No reported suicidal ideation upon admission.
Psychiatry input appreciated. No evidence for decompensation.
Code status: full code
DVT prophylaxis: Lovenox Sq 60mg q12h
Medically stable. Await placement. Per CM correspondence- Awaiting Level II PASRR to be completed.
Anticipated Discharge: > 48 hours
Subjective/Interval History
-
Date of Service: December 20, 2024
Objective Data
-
Labs:
Laboratory Results
12/20/24
09:55
WBC 6.8
Hgb 13.4
Hct 38.6 L
Plt Count 286
Sodium 140
Potassium 3.8
Chloride 107
Carbon Dioxide 27
BUN 16
Creatinine 0.7
Glucose 153 H
Calcium 9.2
Vital Signs:
Vital Signs
Temp Pulse Resp BP Pulse Ox
97.9 F 87 18 141/50 99
12/20/24 07:41 12/20/24 07:41 12/20/24 07:41 12/20/24 07:41 12/20/24 07:56
I&O
12/19/24 12/20/24 12/21/24
06:59 06:59 06:59
Intake Total 1920 / 1920 600 / 600
Output Total 875 / 875 925 / 925 350 / 350
Balance 1045 / 1045 -325 / -325 -350 / -350
Physical Exam
-
General: Well Developed, Well Nourished, No Apparent Distress and Morbidly Obese
HEENT: Normocephalic, Atraumatic and Moist Mucous Membranes
Respiratory: Decreased Breath Sounds
Cardiac: Regular Rhythm and S1/S2; Negative Murmur, Rub or Gallop
GI: Soft, Nontender, Nondistended and Normal Bowel Sounds; Negative Organomegaly
Rectal: Deferred by Provider
Musculoskeletal: No Clubbing, No Cyanosis and No Edema
Skin: Negative Rash
Neuro: Awake and Nonfocal/Grossly Intact
--- NOTE | 2024-12-20 14:38 | CM ---
Addendum entered by Korin Castillo 12/20/24 16:21:
CM called [facility] and spoke with Ant - Authorization approved for [facility]
Authorization approval #: [id number]
Start date 12/21/24 --- approval for full 30 days
Ant stated [facility] will reach out to [facility] on 01/20
Left [place] at [facility] approval information
Called Ginny travis and updated
PLAN: [facility] on Sat 12/21
report #: [phone] - ask for nsg tank storage supervisor or 1st floor nurse
fax #: [phone]
transportation forms on chart
Original Note:
CM received call from Sayda ([phone]) from [facility] in [place] - will accept patient.
She stated they can accept over the weekend if auth approved
Spoke to Toshia travis ([phone]) & updated
Notified the patient, agreeable
[facility] NPI #: [id number]----[facility] NPI #: [id number]
tt PT and requested patient be seen today (last PT note 12/18) so CM can obtain auth
CM will call [facility] once seen by PT today
PLAN: [facility] once insurance auth approved
report #: [phone] - ask for nsg tank storage supervisor or 1st floor nurse
fax #: [phone]
[2024-12-20 15:26] VITALS: BP 134/78
[2024-12-20 15:29] VITALS: BP 134/78; PULSE 112; O2SAT 98
[2024-12-20 16:20] LABS: Glucose - Point of Care 201 mg/dl (70-99)
[2024-12-20] MEDS: NOVOLOG FLEXPEN-LOW RESISTANCE 2 UNITS SC (16:48)
--- NOTE | 2024-12-20 18:35 | PTCARENOTE ---
Laila care and clean sheets provided to patient this shift, teeth brushed, patient refusing further hygiene this shift and insisting on wearing soiled clothes. Patient given soap and water bath yesterday by this RN and tech. Clean gowns provided on
both shifts and patient encouraged to wear, continuing to refuse at this time.
[2024-12-20 21:29] LABS: Glucose - Point of Care 218 mg/dl (70-99)
[2024-12-20 23:06] VITALS: BP 141/85
[2024-12-21 07:44] LABS: Glucose - Point of Care 133 mg/dl (70-99)
[2024-12-21 07:45] VITALS: BP 168/96
[2024-12-21] MEDS: NOVOLOG FLEXPEN-LOW RESISTANCE SC ×2 (07:59→11:57)
[2024-12-21] MEDS: LOVENOX 60 MG SC (09:54)
[2024-12-21] MEDS: DESENEX/MITRAZOL/ZEASORB 1 APPLIC TOPICAL (09:56)
[2024-12-21 11:34] LABS: Glucose - Point of Care 140 mg/dl (70-99)
--- NOTE | 2024-12-21 11:39 | CM ---
Pt for discharge today
Spoke with Sara from [facility] - can accept today
Transport at 12:15PM
Updated pt, guardian and facility
PLAN: [facility]
report #: [phone] - ask for nsg supervisor color making or 1st floor nurse
fax #: [phone]
[2024-12-21 11:42] VITALS: BP 146/64
[2024-12-21] MEDS: ROCEPHIN IV (11:58)
[2024-12-21] MEDS: STERILE WATER FOR INJECTION IV (11:59)
--- NOTE | 2024-12-21 12:11 | W.DCSUMMARY ---
Discharge Summary
Discharge Data
Date of Admission: 12/08/24
Date of Discharge: 12/21/24
-
Pending Results: No
Hospital Course
Primary diagnosis:
Urinary tract infection with Proteus mirabilis
Intertrigo and possible fungal infection
Secondary diagnosis:
Morbid obesity with BMI of 74.3
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
History of psychosis
Hospital course:
Patient is a 29-year-old male with past medical history significant for morbid obesity, diabetes and Hx psychosis who presented to [facility] ED as a transfer from [facility]. Patient ordinally presented to [facility] ED on
12/02/[address] appointed guardian for evaluation of rash of lower abdomen, genitalia and rectal area that has been causing increased discomfort, he was transferred to [facility] for treatment of rash/cellulitis as they are
better equipped to deal with significant bariatric patients. Treatment at [facility] included IV Vancomycin and Miconazole powder, vanco completed patient to continue with miconazole for 10 days per transfer.
Patient while he was here at [facility] had malodorous urine with dysuria and urine culture showed Proteus mirabilis which is mostly pansensitive. Antibiotics were switched to oral Augmentin on discharge.
Was seen by therapist and felt he would need rehab and was discharged to [facility] rehab today.
On the day of discharge patient without any fever or chills. He was afebrile and hemodynamically stable. Tolerating diet without nausea vomiting. No diarrhea. He had no shortness of breath.No dysuria. Chest was clear. No tachy. A&O *3 without
confusion.
Discharge Plan
-
Patient Disposition: Residential/SNF
Discharge Diagnosis/Procedures: UTI with Proteus mirabilis; morbid obesity
Diet: Regular and Diabetic, Carb Controlled
Activity: As tolerated
Driving Restrictions: Not until seen by your Dr
Bathing Restrictions: None
Other Services: PT
Activity Restrictions/Additional Instructions:
Wound Care Instructions Right Lateral Leg Abrasion- Clean with normal saline, apply Honey gel and cover with silicone border foam.
Left Groin Wound and Scrotal Wound- Clean with saline, apply no-sting barrier around wound and cover with alginate and adhesive foam. Change Q 48 hours and PRN drainage
Desenex powder to reddened skin in between groin skin folds
Bariatric bed
Follow up at wound care center call for an appointment.
Referrals:
UNKNOWN - PT NOT,INTERVIEWE [Family Provider] -
Prescriptions:
New
amoxicillin-pot clavulanate 875-125 mg tablet
1 tab PO BID Qty: 8 0RF
Rx Instructions:
For 4 more days
Continued
aluminum-magnesium hydroxide 225-200 mg/5 mL Suspension
5 ml PO TID PRN (Reason: GERD)
Discharge Orders:
Discharge Patient (As Directed); Ordered 12/21/24
Ordered By: Jt Archibald
Discharge Date and Time
Print Language: AZERI
--- NOTE | 2024-12-25 09:49 | CM ---
LIGIA from [facility] SHOSHANA Curtis [phone] to verify transfer to [facility].
SHOSHANA Chi for [facility] will continue to follow patient.
== END 2024-12-21 12:32 ==
LOC: 2 NORTH 14:26
PROVIDERS: Internal Medicine; Nurse Practitioner Family; ADMITTING PHYSICIAN Hospitalist; ATTENDING PHYSICIAN Internal Medicine; OTHER PHYSICIAN Psychiatry & Neurology Psychiatry
DX: N39.0 Urinary tract infection, site not specified (principal); B36.9 Superficial mycosis, unspecified; Z59.00 Homelessness unspecified; E66.01 Morbid (severe) obesity due to excess calories; E11.9 Type 2 diabetes mellitus without complications; Z68.45 Body mass index [BMI] 70 or greater, adult; Z71.82 Exercise counseling; R82.998 Other abnormal findings in urine; B96.4 Proteus (mirabilis) (morganii) as the cause of diseases classified elsewhere; L30.4 Erythema intertrigo; Z75.1 Person awaiting admission to adequate facility elsewhere
CPT/HCPCS: 80048; 80053; 81003; 81015; 82962; 83036; 83735; 85025; 85027; 87070; 87086; 87088; 87186; 97116; 97163; 97167; 97530; 97535; G0378